=== PATIENT | female | born 1985 | race Caucasian/White ===

== ENCOUNTER 2016-12-17 19:18 | Emergency (ER) | payer SELFPAY ==
[~2016-12-17] VITALS: Ht 167.6 cm; Wt 104.3 kg
[~2016-12-17 19:18] MED LIST: ACET1TAB33 PO; ACET325T9 PO; ASPI1TAB30 PO; CIPR500T94 PO; HYDR-971 PO; IBUP-1227 PO; IBUP200T43 PO; IBUP800T19 PO; METR500T PO; ONDA4TAB10 SL; ONDA4TAB12 PO; SULF1TAB24 PO
[2016-12-17 19:20] VITALS: BP 111/74
[2016-12-17] MEDS ORDERED: METH4TAB2 PO (20:02)
--- NOTE | 2016-12-17 20:02 | PHYS DOC ---
Past History Past Medical History: Kidney Stones, Ovarian Cyst, Stroke, UTI, Other Past Surgical History: Other Smoking: Non-smoker Alcohol Use: None Drug Use: None Adult General Chief Complaint Chief Complaint: UPPER EXTREMITY PAIN HPI HPI Patient is a 31 year old female who presents with complaint of bilateral upper extremity pain. Patient states her symptoms started late last night and have been progressively worsening throughout the day. Patient describes burning, stinging pain from her forearms radiating down to her hands bilaterally. Patient states that all fingers seem to be affected bilaterally. 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 Patient states that she was seen in the emergency department within the last 1-2 days with complaints of lower extremity pain. Patient states that she is found have superficial thrombosis but no evidence of DVT. The patient is concerned because of the pain in her arms whether she may have a potential clot. Patient states that this has also worsened her anxiety at this time. Patient denies any associated swelling to her arms. Patient has not taken any medications to help with her symptoms at this time. She does admit that she has had an increase in work load over the past 2 days and has been doing more lifting with her arms. Review of Systems Review of Systems Constitutional: Anxiety, denies fever or chills [] Eyes: Denies change in visual acuity, redness, or eye pain [] HENT: Denies nasal congestion or sore throat [] Respiratory: Denies cough or shortness of breath [] Cardiovascular: Denies chest pain or edema [] GI: Denies abdominal pain, nausea, vomiting, bloody stools or diarrhea [] : Denies dysuria or hematuria [] Musculoskeletal: Bilateral upper extremity pain [] Integument: Denies rash or skin lesions [] Neurologic: Denies headache, focal weakness or sensory changes [] Allergies Allergies Allergies Coded Allergies Type Severity Reaction Last Updated Verified Penicillins Allergy Intermediate Anaphylaxis 02/18/15 Yes latex Allergy Intermediate rash 02/18/15 Yes tioconazole Allergy Intermediate 02/18/15 Yes Physical Exam Physical Exam Constitutional: Alert, afebrile, appears anxious. [] HENT: Normocephalic, atraumatic, bilateral external ears normal, oropharynx moist, no oral exudates, nose normal. [] Eyes: PERRLA, EOMI, conjunctiva normal, no discharge. [] Neck: Normal range of motion, no tenderness, supple, no stridor. [] Cardiovascular:Heart rate regular rhythm, no murmur [] Lungs & Thorax: Bilateral breath sounds clear to auscultation [] Abdomen: Bowel sounds normal, soft, no tenderness, no masses, no pulsatile masses. [] Skin: Warm, dry, no erythema, no rash. [] Back: No tenderness, no CVA tenderness. [] Extremities: No obvious swelling or deformity to the bilateral upper extremities , tenderness palpation along bilateral condyles of elbow joints, pulses 2+ distally, diffuse tenderness palpation throughout bilateral forearms and all digits of hands, capillary refill less than 2 seconds. [] Neurologic: Alert and oriented X 3, normal motor function, normal sensory function, no focal deficits noted. [] Current Patient Data Vital Signs Vital Signs Date Time Temp Pulse Resp B/P (MAP) Pulse Ox O2 Delivery O2 Flow Rate FiO2 12/17/16 19:20 97.7 79 20 97 Room Air EKG EKG Not performed [] Radiology/Procedures Radiology/Procedures Not performed [] Course & Med Decision Making Course & Med Decision Making Pertinent Labs and Imaging studies reviewed. (See chart for details) The patient's symptoms appear consistent with overuse injury of the upper extremities. I have low suspicion for deep venous thrombosis as the cause for the patient's symptoms due to its bilateral nature and lack of extremity swelling or abnormal perfusion findings. The patient will be started on Medrol Dosepak for treatment of inflammation to help resolve symptoms. Advise follow- up in 2-3 days a primary doctor and return to emergency department for any worsening symptoms. Patient was understanding and in agreement with treatment plan. Dragon Disclaimer Dragon Disclaimer This chart was dictated in whole or in part using Voice Recognition software in a busy, high-work load, and often noisy Emergency Department environment. It may contain unintended and wholly unrecognized errors or omissions. Departure Departure: Impression: Primary Impression: Bilateral arm pain Disposition: 01 HOME, SELF-CARE Condition: STABLE Referrals: LIDYA THORPE (PCP) Patient Instructions: Musculoskeletal Pain Additional Instructions: Follow-up with primary doctor in 2 days for reevaluation. Return to emergency department for any worsening symptoms. Scripts Methylprednisolone (MEDROL) 4 Mg Tab.ds.pk 1 PKG PO UD, #1 PKG Prov: LAMBERTO ARIAS MD 12/17/16 LAMBERTO ARIAS MD Dec 17, 2016 20:02
== END 2016-12-17 20:10 | disposition home or self-care (01) ==
LOC: ER 19:18
DX: M79.602 Pain in left arm (principal); M79.601 Pain in right arm; R22.33 Localized swelling, mass and lump, upper limb, bilateral; F41.9 Anxiety disorder, unspecified; Z86.73 Personal history of transient ischemic attack (TIA), and cerebral infarction without residual deficits; Z87.442 Personal history of urinary calculi; Z87.440 Personal history of urinary (tract) infections; Z88.0 Allergy status to penicillin; Z88.8 Allergy status to other drugs, medicaments and biological substances; Z91.040 Latex allergy status
CPT/HCPCS: 99283

== ENCOUNTER 2017-08-05 12:05 | Emergency (ER) | payer BC ==
[~2017-08-05] VITALS: Ht 167.6 cm; Wt 104.3 kg
[~2017-08-05 12:05] MED LIST changes: -ASPI1TAB30 PO; +ASPI1TAB31 PO; -IBUP200T43 PO; +IBUP200T44 PO; +METH4TAB2 PO
--- NOTE | 2017-08-05 12:28 | PHYS DOC ---
Past History Past Medical History: Asthma, Kidney Stones, Ovarian Cyst, Stroke, UTI, Other Past Surgical History: Other Smoking: Non-smoker Alcohol Use: None Drug Use: None Adult General Chief Complaint Chief Complaint: FLU SYMPTOM HPI HPI 32-year-old female patient states she had cough and congestion for 2 weeks and was doing [facility] one week ago with negative flu test and treated with doxycycline and Medrol Dosepak but her symptom getting worse for the last 3 or 4 days with fever of 102 yesterday and myalgia and nausea and posttussive vomiting. Patient complaining of chest soreness in substernal area after cough. Patient is not able to sleep at night because of cough and complaining of generalized weakness and sinus pain. Review of Systems Review of Systems Constitutional: Reports fever and generalized weakness Eyes: Denies change in visual acuity, redness, or eye pain [] HENT: Reports congestion and sore throat Respiratory: Reports cough and shortness of breath Cardiovascular: No additional information not addressed in HPI [] GI: Denies abdominal pain, bloody stools or diarrhea, reports nausea and vomiting [] : Denies dysuria or hematuria [] Musculoskeletal: Denies back pain or joint pain [] Integument: Denies rash or skin lesions [] Neurologic: Denies headache, focal weakness or sensory changes [] Endocrine: Denies polyuria or polydipsia [] All other systems were reviewed and found to be within normal limits, except as documented in this note. Allergies Allergies Allergies Coded Allergies Type Severity Reaction Last Updated Verified Penicillins Allergy Intermediate Anaphylaxis 02/18/15 Yes latex Allergy Intermediate rash 02/18/15 Yes tioconazole Allergy Intermediate 02/18/15 Yes Physical Exam Physical Exam Constitutional: Well developed, well nourished, mild distress, non-toxic appearance. [] HENT: Normocephalic, atraumatic, bilateral external ears normal, oropharynx moist, pharyngeal erythema no oral exudates, nasal congestion, sinus tenderness Eyes: PERRLA, EOMI, conjunctiva normal, no discharge. [] Neck: Normal range of motion, no tenderness, supple, no stridor. [] Cardiovascular:Heart rate regular rhythm, no murmur [] Lungs & Thorax: Bilateral breath sounds clear to auscultation [] Abdomen: Bowel sounds normal, soft, no tenderness, no masses, no pulsatile masses. [] Skin: Warm, dry, no erythema, no rash. [] Back: No tenderness, no CVA tenderness. [] Extremities: No tenderness, no cyanosis, no clubbing, ROM intact, no edema. [] Neurologic: Alert and oriented X 3, normal motor function, normal sensory function, no focal deficits noted. [] Psychologic: Affect normal, judgement normal, mood normal. [] EKG EKG [] Radiology/Procedures Radiology/Procedures [][address] [address] IMAGING REPORT Signed PATIENT: TAB CLIFTON ACCOUNT: [id number] : 1985 LOCATION: ER AGE: 32 SEX: F EXAM STATUS: PRE ER ORD. PHYSICIAN: ZACH DENNY MD REASON: cough and shortness of breath PROCEDURE: CHEST PA & LATERAL PROCEDURE: CHEST PA LATERAL CLINICAL INDICATION: cough and shortness of breath COMPARISON: Previous study from 08/16/2014 FINDINGS: No pneumothorax identified. Cardiac and mediastinal contours unremarkable. No pulmonary consolidation or acute airspace disease. No acute osseous abnormalities identified. IMPRESSION: No pulmonary consolidation or acute airspace disease. DICTATED AND SIGNED BY: CLAUDIA SOLARES DO DATE: 08/05/17 1232 CC: BARRIE SOSA MD; ZACH DENNY MD ~ Course & Med Decision Making Course & Med Decision Making Pertinent Labs and Imaging studies reviewed. (See chart for details) Evaluation of patient in ER showed 32-year-old female patient with history of recent upper respiratory infection and negative (and treatment for upper respiratory infection with Medrol Dosepak. Patient complaining of increasing of her symptoms and fever since yesterday. Patient had positive influenza B. Plan to give prescription for Tamiflu and Tussionex and instruction to stop Medrol Dosepak. discharge: I've spoken with the patient and/or caregivers. I've explained the patient's condition, diagnosis and treatment plan based on information available to me at this time. I've answered the patient's and/or caregivers questions and addressed any concerns. The patient and/or caregivers have a good understanding the patient's diagnosis, condition and treatment plan as can be expected at this point. Vital signs have been stabilized. The patient's condition is stable for discharge from the emergency department. The patient will pursue further outpatient evaluation with her primary care provider or other designated consulting physician as outlined in the discharge instructions. Patient and/or caregivers are agreeable to this plan of care and follow-up instructions have been explained in detail. The patient and/or caregivers have received these instructions in written format and expressed understanding of these discharge instructions. The patient and her caregivers are aware that if any significant change in condition or worsening of symptoms should prompt him to immediately return to this of the closest emergency department. If an emergent department is not readily available I would encourage him to call 911. Dragon Disclaimer Dragon Disclaimer This electronic medical record was generated, in whole or in part, using a voice recognition dictation system. Departure Departure: Impression: Primary Impression: Influenza B Disposition: HOME, SELF-CARE (At 1330) Condition: IMPROVED Referrals: BARRIE SOSA MD (PCP) Patient Instructions: Influenza A (H1N1) Additional Instructions: Drink plenty of liquids Follow-up with your primary care physician in 3-5 days Return to ER if not getting better Scripts Hydrocodone/Chlorphen P-Stirex (Tussionex Pennkinetic Susp) 115 Ml Anjelica.er.12h 5 ML PO BID, #120 ML Prov: ZACH DENNY MD 08/05/17 Oseltamivir Phosphate (TAMIFLU) 75 Mg Capsule 1 CAP PO BID, #10 CAP Prov: ZACH DENNY MD 08/05/17 ZACH DENNY MD Aug 05, 2017 12:28
[2017-08-05 12:30] VITALS: BP 104/55
[2017-08-05] MEDS ORDERED: IPRATRPIUM/ALBUTEROL 0.5/2.5MG 3 ML NEBU. NEB ONE (12:30)
--- NOTE | 2017-08-05 12:35 | RAD ---
PROCEDURE: CHEST PA LATERAL CLINICAL INDICATION: cough and shortness of breath COMPARISON: Previous study from 08/16/2014 FINDINGS: No pneumothorax identified. Cardiac and mediastinal contours unremarkable. No pulmonary consolidation or acute airspace disease. No acute osseous abnormalities identified. IMPRESSION: No pulmonary consolidation or acute airspace disease.
[2017-08-05 13:12] LABS: INFLUENZA A PATIENT NEGATIVE (NEGATIVE); INFLUENZA B PATIENT POSITIVE (NEGATIVE)
[2017-08-05] MEDS ORDERED: OSEL75CA PO (13:32)
[2017-08-05] MEDS ORDERED: HYDR115S2 PO (13:32)
[2017-08-06] MEDS ORDERED: RIVA10TA PO (14:20)
[2017-08-07] MEDS ORDERED: OSEL75CA PO (10:22)
== END 2017-08-05 13:43 | disposition home or self-care (01) ==
LOC: ER 12:05
DX: J10.1 Influenza due to other identified influenza virus with other respiratory manifestations (principal); J45.909 Unspecified asthma, uncomplicated; Z87.442 Personal history of urinary calculi; Z86.73 Personal history of transient ischemic attack (TIA), and cerebral infarction without residual deficits; Z87.440 Personal history of urinary (tract) infections; Z88.0 Allergy status to penicillin; Z88.8 Allergy status to other drugs, medicaments and biological substances; Z91.040 Latex allergy status
CPT/HCPCS: 71046; 87804; 94640; 99285; J7620

== ENCOUNTER 2017-08-06 11:10 | Inpatient (IN) | payer BC ==
[~2017-08-06] VITALS: Ht 167.6 cm; Wt 103.4 kg
[~2017-08-06 11:10] MED LIST changes: +HYDR115S2 PO; +OSEL75CA PO
[2017-08-06] MEDS ORDERED: IV NORMAL SALINE 1,000ML 1,000 ML IV SCH (11:24)
[2017-08-06] MEDS ORDERED: 0.9 % SODIUM CHLORIDE 10 ML DISP.SYRIN. IV PRN (11:30)
[2017-08-06] MEDS ORDERED: KETOROLAC 30 MG/ML VIAL. IV ONE (12:00)
[2017-08-06] MEDS ORDERED: ONDANSETRON PF 4 MG/2 ML VIAL. IV ONE (12:00)
[2017-08-06 12:18] LABS: BASO % 1 % (0-3); EOS % 0 % (0-3); HEMATOCRIT 40.7 % (36.0-47.0); LYMPH # 1.5 x10^3/uL (1.0-4.8); LYMPH % 33 % (24-48); MEAN CORPUSCULAR HEMOGLOBIN 28 pg (25-35); MEAN CORPUSCULAR HGB CONC 34 g/dL (31-37); MEAN CORPUSCULAR VOLUME 80 fL (79-100); MONO # 0.4 x10^3/uL (0.0-1.1); MONO % 8 % (0-9); NEUT # 2.7 x10^3uL (1.8-7.7); NEUT % 58 % (31-73); PLATELET COUNT 186 x10^3/uL (140-400); RED BLOOD COUNT 5.07 x10^6/uL (3.50-5.40); RED CELL DISTRIBUTION WIDTH 14.3 % (11.5-14.5); WHITE BLOOD COUNT 4.7 x10^3/uL (4.0-11.0)
[2017-08-06 12:33] LABS: ALBUMIN 3.8 g/dL (3.4-5.0); CALCIUM 8.8 mg/dL (8.5-10.1); CREATININE 0.9 mg/dL (0.6-1.0); GFR 72.1; POTASSIUM 3.1 mmol/L (3.5-5.1); TOTAL BILIRUBIN 0.3 mg/dL (0.2-1.0); TOTAL PROTEIN 7.6 g/dL (6.4-8.2)
[2017-08-06] MEDS ORDERED: POTASSIUM CHLORIDE 20 MEQ/15 ML ORAL LIQUID. PO ONE (13:00)
[2017-08-06] MEDS ORDERED: MORPHINE SULFATE 4 MG/ML DISP.SYRIN. IV ONE (13:00)
[2017-08-06] MEDS ORDERED: MORPHINE SULFATE 4 MG/ML DISP.SYRIN. IV PRN (13:15)
[2017-08-06] MEDS ORDERED: ONDANSETRON PF 4 MG/2 ML VIAL. IV PRN (13:15)
--- NOTE | 2017-08-06 13:18 | PHYS DOC ---
Past History Past Medical History: Asthma, CVA, [place], Other Past Surgical History: Tubal ligation Smoking: Non-smoker Alcohol Use: None Drug Use: None Adult General Chief Complaint Chief Complaint: NAUSEA/VOMITING/DIARRHEA HPI HPI 32-year-old female patient was seen in this emergency room yesterday with diagnosis of influenza B and treated with Tamiflu and Tussionex but patient states she had frequent episodes of vomiting since this morning and had more than 10 episodes of vomiting and 3 episodes of diarrhea with crampy abdominal pain. Patient complaining of generalized weakness and not feeling good and unable to keep her medication. Review of Systems Review of Systems Constitutional: Reports fever and chills Eyes: Denies change in visual acuity, redness, or eye pain [] HENT: Reports nasal congestion and sore throat Respiratory: Reports cough and shortness of breath [] Cardiovascular: No additional information not addressed in HPI [] GI: Reports abdominal pain, nausea, vomiting, diarrhea [] : Denies dysuria or hematuria [] Musculoskeletal: Denies back pain or joint pain [] Integument: Denies rash or skin lesions [] Neurologic: Reports headache, denies focal weakness or sensory changes [] Endocrine: Denies polyuria or polydipsia [] All other systems were reviewed and found to be within normal limits, except as documented in this note. Current Medications Current Medications Current Medications Medications (Trade) Dose Ordered Sig/Maximo Start Time Stop Time Status Last Admin Dose Admin Ketorolac Tromethamine (Toradol) 30 mg 1X ONCE 08/06/17 12:00 08/06/17 12:01 DC 08/06/17 11:54 30 MG Morphine Sulfate (Morphine 4mg Syringe) 4 mg 1X ONCE 08/06/17 13:00 08/06/17 13:02 DC 08/06/17 12:59 4 MG Ondansetron HCl (Zofran) 4 mg 1X ONCE 08/06/17 12:00 08/06/17 12:01 DC 08/06/17 11:54 4 MG Potassium Chloride (KCl Oral Soln) 40 meq 1X ONCE 08/06/17 13:00 08/06/17 13:02 DC 08/06/17 13:03 40 MEQ Sodium Chloride (Normal Saline Flush) 10 ml QSHIFT PRN 08/06/17 11:30 Allergies Allergies Allergies Coded Allergies Type Severity Reaction Last Updated Verified Penicillins Allergy Intermediate Anaphylaxis 08/06/17 Yes latex Allergy Intermediate rash 08/06/17 Yes tioconazole Allergy Intermediate 08/06/17 Yes Physical Exam Physical Exam Constitutional: Well developed, well nourished, moderate distress, non-toxic appearance, anxious HENT: Normocephalic, atraumatic, bilateral external ears normal, oropharynx dry , pharyngeal erythema, no oral exudates, nose normal. [] Eyes: PERRLA, EOMI, conjunctiva normal, no discharge. [] Neck: Normal range of motion, no tenderness, supple, no stridor. [] Cardiovascular:Heart rate regular rhythm, no murmur [] Lungs & Thorax: Bilateral breath sounds clear to auscultation [] Abdomen: Bowel sounds normal, soft, no tenderness, no masses, no pulsatile masses. [] Skin: Warm, dry, no erythema, no rash. [] Back: No tenderness, no CVA tenderness. [] Extremities: No tenderness, no cyanosis, no clubbing, ROM intact, no edema. [] Neurologic: Alert and oriented X 3, normal motor function, normal sensory function, no focal deficits noted. [] Psychologic: Anxious, judgement normal, mood normal. [] Current Patient Data Vital Signs Vital Signs Date Time Temp Pulse Resp B/P (MAP) Pulse Ox O2 Delivery O2 Flow Rate FiO2 08/06/17 12:59 19 97 Room Air 08/06/17 11:15 98.1 100 Lab Results Laboratory Tests Test 08/06/17 11:44 White Blood Count 4.7 x10^3/uL (4.0-11.0) Red Blood Count 5.07 x10^6/uL (3.50-5.40) Hemoglobin 14.0 g/dL (12.0-15.5) Hematocrit 40.7 % (36.0-47.0) Mean Corpuscular Volume 80 fL (79-100) Mean Corpuscular Hemoglobin 28 pg (25-35) Mean Corpuscular Hemoglobin Concent 34 g/dL (31-37) Red Cell Distribution Width 14.3 % (11.5-14.5) Platelet Count 186 x10^3/uL (140-400) Neutrophils (%) (Auto) 58 % (31-73) Lymphocytes (%) (Auto) 33 % (24-48) Monocytes (%) (Auto) 8 % (0-9) Eosinophils (%) (Auto) 0 % (0-3) Basophils (%) (Auto) 1 % (0-3) Neutrophils # (Auto) 2.7 x10^3uL (1.8-7.7) Lymphocytes # (Auto) 1.5 x10^3/uL (1.0-4.8) Monocytes # (Auto) 0.4 x10^3/uL (0.0-1.1) Eosinophils # (Auto) 0.0 x10^3/uL (0.0-0.7) Basophils # (Auto) 0.0 x10^3/uL (0.0-0.2) Sodium Level 140 mmol/L (136-145) Potassium Level 3.1 mmol/L (3.5-5.1) L Chloride Level 103 mmol/L (98-107) Carbon Dioxide Level 27 mmol/L (21-32) Anion Gap 10 (6-14) Blood Urea Nitrogen 17 mg/dL (7-20) Creatinine 0.9 mg/dL (0.6-1.0) Estimated GFR (Cockcroft-Gault) 72.1 BUN/Creatinine Ratio 19 (6-20) Glucose Level 93 mg/dL (70-99) Calcium Level 8.8 mg/dL (8.5-10.1) Total Bilirubin 0.3 mg/dL (0.2-1.0) Aspartate Amino Transferase (AST) 15 U/L (15-37) Alanine Aminotransferase (ALT) 23 U/L (14-59) Alkaline Phosphatase 52 U/L (46-116) Total Protein 7.6 g/dL (6.4-8.2) Albumin 3.8 g/dL (3.4-5.0) Albumin/Globulin Ratio 1.0 (1.0-1.7) Lipase 133 U/L (73-393) EKG EKG [] Radiology/Procedures Radiology/Procedures [] Course & Med Decision Making Course & Med Decision Making Pertinent Labs reviewed. (See chart for details) Evaluation of patient in ER showed 32-year-old female patient sent diagnose of influenza and complaining of nausea and vomiting and not feeling good. Patient had potassium of 3.1 but was not able to take potassium. Patient treated with IV fluid and Zofran and felt better. Plan to admit patient to hospitalist for rehydration and pain management. Dr. Beltran informed at 1310 and accepted admission. [] Dragon Disclaimer Dragon Disclaimer This electronic medical record was generated, in whole or in part, using a voice recognition dictation system. Departure Departure: Impression: Primary Impression: Intractable nausea and vomiting Additional Impressions: Hypokalemia Influenza B Disposition: 09 ADMITTED INPATIENT (At 1310) Admitting Physician: Jaswinder Beltran Condition: IMPROVED Referrals: JASWINDER BELTRAN MD (PCP) Problem Qualifiers ZACH DENNY MD Aug 06, 2017 13:18
[2017-08-06 13:45] LABS: BILIRUBIN,URINE NEG (NEG); CLARITY,URINE HAZY; COLOR,URINE YELLOW; GLUCOSE,URINE NEG (NEG)
[2017-08-06 13:46] LABS: BACTERIA,URINE FEW /HPF (0-FEW); NITRITE,URINE NEG (NEG); RBC,URINE OCC /HPF (0-2); SQUAMOUS EPITHELIAL CELL,UR MOD /LPF; UROBILINOGEN,URINE 0.2 mg/dL (0.2 mg/dL); YEAST,URINE PRESENT /HPF
[2017-08-06] MEDS: POTASSIUM CL 40MEQ IN 0.9%NACL 1,000 ML IV SCH ×2 (14:16→23:29)
[2017-08-06] MEDS ORDERED: RIVA10TA PO (14:20)
[2017-08-06 14:44] VITALS: BP 102/62
[2017-08-06] MEDS ORDERED: HYDROcodone/CHLORPHEN POLIS 5 ML SUS.ER.12H PO SCH (15:00)
[2017-08-06] MEDS: OSELTAMIVIR 75 MG CAPSULE PO SCH ×2 (15:00→20:02)
[2017-08-06] MEDS ORDERED: ACETAMINOPHEN 500 MG TABLET PO PRN (17:15)
[2017-08-06 17:24] VITALS: BP 101/71
[2017-08-06] MEDS ORDERED: ZOLPIDEM 5 MG TABLET. PO PRN (17:30)
[2017-08-06 20:00] VITALS: BP 117/73
[2017-08-06] MEDS ORDERED: RIVAROXABAN 10 MG TABLET. PO SCH (21:00)
[2017-08-06 23:00] VITALS: BP 126/76
--- NOTE | 2017-08-06 23:46 | HP ---
ADMIT DATE: 08/06/2017 HISTORY OF PRESENT ILLNESS: The patient came in, apparently was diagnosed with influenza B, sent home, treated with Tamiflu and Tussionex; however, the patient became increasingly nauseated, vomiting 10 times of vomiting, 3 episodes of diarrhea, crampy abdominal pain, generalized weakness, unable to take her medication. As a result of this, the patient was admitted to the hospital for further evaluation and treatment of her dehydration and influenza B. PAST MEDICAL HISTORY: Asthma, stroke, [place], had a history of a stroke, heart attack, blood disorder of factor 2, 5, and 8 deficiency. PAST SURGICAL HISTORY: Tubal ligation. SOCIAL HISTORY: The patient denies smoking, alcohol or drug use. FAMILY HISTORY: Father with history of stroke. ALLERGIES: PENICILLIN, IBUPROFEN, LATEX, TIOCONAZOLE. The patient of course is a full code. MEDICATIONS: Includes Tussionex, Tamiflu 75 b.i.d. and Xarelto 10 mg a day for history of stroke. REVIEW OF SYSTEMS: As stated in the HPI, generalized weakness, nausea, vomiting, diarrhea, and dehydration. The patient will be admitted for further evaluation and for as such. PHYSICAL EXAMINATION: GENERAL: This is a pleasant white female with moderate amount of pain. VITAL SIGNS: Blood pressure 101/70, respiratory rate 16, pulse 80, afebrile. HEENT: The patient's head was atraumatic, normocephalic. Eyes: PERRLA without jaundice. The mouth and throat were normal. NECK: Supple, without thyromegaly. LUNGS: Diminished throughout, but clear. CARDIOVASCULAR: Regular sinus rhythm. ABDOMEN: Soft, nontender, no rebound or guarding. Positive bowel sounds, no hepatosplenomegaly was noted. EXTREMITIES: No clubbing, cyanosis or edema. NEUROLOGIC: The patient was alert and oriented x 3. IMPRESSION AND PLAN: Influenza B. nausea, vomiting, dehydration. Continue with Tamiflu, IV fluids and make further evaluation on her as indicated per those results. BARRIE SOSA MD DR: ANTHONY/claude JOB#: [id number] / [id number]
[2017-08-07] MEDS: POTASSIUM CL 40MEQ IN 0.9%NACL 1,000 ML IV SCH ×2 (05:30→06:24)
[2017-08-07 05:55] VITALS: BP 93/59
[2017-08-07 06:40] LABS: BASO % 0 % (0-3); EOS % 1 % (0-3); HEMATOCRIT 36.4 % (36.0-47.0); HEMOGLOBIN 12.6 g/dL (12.0-15.5); LYMPH # 2.1 x10^3/uL (1.0-4.8); LYMPH % 52 % (24-48); MEAN CORPUSCULAR HEMOGLOBIN 28 pg (25-35); MEAN CORPUSCULAR HGB CONC 35 g/dL (31-37); MEAN CORPUSCULAR VOLUME 80 fL (79-100); MONO # 0.3 x10^3/uL (0.0-1.1); MONO % 7 % (0-9); NEUT # 1.6 x10^3uL (1.8-7.7); NEUT % 40 % (31-73); PLATELET COUNT 159 x10^3/uL (140-400); RED BLOOD COUNT 4.53 x10^6/uL (3.50-5.40); RED CELL DISTRIBUTION WIDTH 14.3 % (11.5-14.5)
[2017-08-07 06:48] LABS: ALBUMIN/GLOBULIN RATIO 0.9 (1.0-1.7); CALCIUM 8.2 mg/dL (8.5-10.1); CREATININE 0.7 mg/dL (0.6-1.0); GFR 96.4; TOTAL BILIRUBIN 0.2 mg/dL (0.2-1.0); TOTAL PROTEIN 6.3 g/dL (6.4-8.2)
[2017-08-07] MEDS: OSELTAMIVIR 75 MG CAPSULE PO SCH (07:42)
[2017-08-07] MEDS ORDERED: RIVAROXABAN 10 MG TABLET. PO SCH (08:00)
[2017-08-07] MEDS ORDERED: OSEL75CA PO (10:22)
[2017-08-07] MEDS ORDERED: HYDROcodone/CHLORPHEN POLIS 5 ML SUS.ER.12H PO PRN (15:00)
== END 2017-08-07 10:50 | disposition home or self-care (01) | DRG 641 ==
LOC: ER 11:10 → ICU 13:15 → OBSVTOIN 08-07 08:20
PROVIDERS: ADMIT Family Medicine; ATTEND Family Medicine
DX: E86.0 Dehydration (principal); E87.6 Hypokalemia; J10.1 Influenza due to other identified influenza virus with other respiratory manifestations; J45.909 Unspecified asthma, uncomplicated; R19.7 Diarrhea, unspecified; I25.2 Old myocardial infarction; Z86.73 Personal history of transient ischemic attack (TIA), and cerebral infarction without residual deficits; Z88.0 Allergy status to penicillin; Z88.8 Allergy status to other drugs, medicaments and biological substances; Z91.040 Latex allergy status; Z98.51 Tubal ligation status; Z82.3 Family history of stroke
CPT/HCPCS: 36415; 80053; 81001; 83690; 85025; 87086; 87641; 96361; 96374; 96375; G0378; G0379; J1885; J2270; J2405; 99285-25; J7030

== ENCOUNTER 2018-01-16 10:05 | Emergency (ER) | payer BC ==
[~2018-01-16] VITALS: Ht 167.6 cm; Wt 99.8 kg
[~2018-01-16 10:05] MED LIST changes: +RIVA10TA PO
[2018-01-16] MEDS ORDERED: CLIN300C8 PO ×2 (10:30→10:35)
[2018-01-16] MEDS ORDERED: ACET-704 PO (10:30)
--- NOTE | 2018-01-16 10:41 | PHYS DOC ---
Past History Past Medical History: Asthma, CVA, [place], Other Past Surgical History: Tubal ligation Smoking: Non-smoker Alcohol Use: None Drug Use: None Adult General Chief Complaint Chief Complaint: DENTAL PROBLEM HPI HPI Patient is a 32-year-old female who presents with complaint of left lower dental pain associated with an impacted wisdom tooth. Patient states that she has started to develop swelling. She has an appointment to see the dentist but states that she is not able to get in for 2 weeks. She indicates the pain is getting worse and is worsened with chewing. She is afraid that she may be developing an abscess. She denies any fever, nausea or vomiting. She rates pain at an 8 out of 10. Review of Systems Review of Systems Constitutional: Denies fever or chills [] HENT: Complains of dental pain[] Respiratory: Denies cough or shortness of breath [] Cardiovascular: Denies chest pain[] All other systems were reviewed and found to be within normal limits, except as documented in this note. Allergies Allergies Allergies Coded Allergies Type Severity Reaction Last Updated Verified ibuprofen Allergy Severe 08/06/17 Yes Penicillins Allergy Intermediate Anaphylaxis 08/06/17 Yes latex Allergy Intermediate rash 08/06/17 Yes tioconazole Allergy Intermediate 08/06/17 Yes Physical Exam Physical Exam Constitutional: Well developed, well nourished, no acute distress, non-toxic appearance. [] HENT: Normocephalic, atraumatic, bilateral external ears normal, oropharynx moist, patient does have impacted wisdom tooth with swelling around the gums. There is mild left-sided facial swelling around the angle of the mandible and maxillary region. [] Eyes: PERRLA, EOMI, conjunctiva normal, no discharge. [] Neck: Normal range of motion, no tenderness, supple, no stridor. [] Cardiovascular:Heart rate regular rhythm, no murmur [] Lungs & Thorax: Bilateral breath sounds clear to auscultation [] EKG EKG [] Radiology/Procedures Radiology/Procedures [] Course & Med Decision Making Course & Med Decision Making Pertinent Labs and Imaging studies reviewed. (See chart for details) [] Dragon Disclaimer Dragon Disclaimer This electronic medical record was generated, in whole or in part, using a voice recognition dictation system. Departure Departure: Impression: Primary Impression: Toothache Additional Impression: Dental impaction Disposition: HOME, SELF-CARE Condition: STABLE Referrals: BARRIE SOSA MD (PCP) Patient Instructions: Impacted Molar, Toothache-Brief Additional Instructions: Take prescribed medications as directed and follow-up with dentist as scheduled. Problem Qualifiers MORENO MATHIAS Jr. DO Jan 16, 2018 10:41
[2018-01-16 11:04] VITALS: BP 123/85
== END 2018-01-16 11:04 | disposition home or self-care (01) ==
LOC: ER 10:05
DX: K01.1 Impacted teeth (principal); J45.909 Unspecified asthma, uncomplicated; I25.2 Old myocardial infarction; Z86.73 Personal history of transient ischemic attack (TIA), and cerebral infarction without residual deficits; Z88.6 Allergy status to analgesic agent; Z88.0 Allergy status to penicillin; Z88.8 Allergy status to other drugs, medicaments and biological substances; Z91.040 Latex allergy status
CPT/HCPCS: 99283

== ENCOUNTER 2018-02-20 11:49 | Emergency (ER) | payer BC ==
[~2018-02-20] VITALS: Ht 167.6 cm; Wt 99.8 kg
[~2018-02-20 11:49] MED LIST changes: +ACET-704 PO; +CLIN300C8 PO
[2018-02-20] MEDS ORDERED: IV NORMAL SALINE 1,000ML 1,000 ML IV ONE (12:15)
[2018-02-20] MEDS ORDERED: DEXAMETHASONE SOD PHOS 4 MG/ML VIAL IV ONE (12:30)
[2018-02-20] MEDS ORDERED: ONDANSETRON PF 4 MG/2 ML VIAL. IV ONE (12:30)
--- NOTE | 2018-02-20 12:42 | RAD ---
RS Compliance Statement: One or more of the following individualized dose reduction techniques were utilized for this examination: 1. Automated exposure control 2. Adjustment of the mA and/or kV according to patient size 3. Use of iterative reconstruction technique CT head without contrast 02/20/2018 12:27 PM INDICATION: Left-sided headache since Sunday COMPARISON: CT head February 26, 2014 TECHNIQUE: Multiple axial CT images of the head were obtained from skull base through the vertex without intravenous contrast. FINDINGS: Head: Ventricles, sulci and basal cisterns are within normal limits. There is no hydrocephalus. Panda-white matter differentiation is normal. There is no acute intracranial hemorrhage. There is no mass, mass effect or midline shift. Posterior fossa is normal in appearance. Visualized portions of the orbits are normal. Paranasal sinuses are well aerated. Mastoid air cells are well aerated. Scalp and calvaria are normal. IMPRESSION: No acute intracranial hemorrhage. Electronically signed by: Nicolette Moreno MD (02/20/2018 12:39 PM) [id number]
[2018-02-20 12:54] LABS: ALBUMIN 3.7 g/dL (3.4-5.0); ALBUMIN/GLOBULIN RATIO 0.9 (1.0-1.7); CALCIUM 9.2 mg/dL (8.5-10.1); CREATININE 0.8 mg/dL (0.6-1.0); GFR 82.6; POTASSIUM 4.1 mmol/L (3.5-5.1); TOTAL BILIRUBIN 0.2 mg/dL (0.2-1.0); TOTAL PROTEIN 7.7 g/dL (6.4-8.2)
[2018-02-20 13:04] LABS: BASO # 0.1 x10^3/uL (0.0-0.2); BASO % 1 % (0-3); EOS # 0.1 x10^3/uL (0.0-0.7); EOS % 1 % (0-3); HEMATOCRIT 35.7 % (36.0-47.0); HEMOGLOBIN 12.2 g/dL (12.0-15.5); LYMPH # 2.8 x10^3/uL (1.0-4.8); LYMPH % 27 % (24-48); MEAN CORPUSCULAR HEMOGLOBIN 28 pg (25-35); MEAN CORPUSCULAR HGB CONC 34 g/dL (31-37); MEAN CORPUSCULAR VOLUME 81 fL (79-100); MONO # 0.5 x10^3/uL (0.0-1.1); MONO % 5 % (0-9); NEUT # 6.9 x10^3uL (1.8-7.7); NEUT % 67 % (31-73); PLATELET COUNT 273 x10^3/uL (140-400); RED BLOOD COUNT 4.42 x10^6/uL (3.50-5.40); RED CELL DISTRIBUTION WIDTH 14.4 % (11.5-14.5); WHITE BLOOD COUNT 10.3 x10^3/uL (4.0-11.0)
--- NOTE | 2018-02-20 13:08 | PHYS DOC ---
Past History Past Medical History: Asthma, CVA, [place], Other Past Surgical History: No Surgical History, Tubal ligation Smoking: Non-smoker Alcohol Use: None Drug Use: None Adult General Chief Complaint Chief Complaint: HEADACHE HPI HPI Patient is a 32 year old female without history of migraine headache who presents with complaining of headache. Patient complaining of sudden onset of left temporal headache that started 4 days ago as a constant and stabbing pain associated with photophobia and nausea. Patient rated her pain 9/10 and denies focal neuro deficit, vomiting, blurred vision, head injury, history of headache , , neck pain or back pain. Review of Systems Review of Systems Constitutional: Denies fever or chills [] Eyes: Denies change in visual acuity, redness, or eye pain [] HENT: Denies nasal congestion or sore throat [] Respiratory: Denies cough or shortness of breath [] Cardiovascular: No additional information not addressed in HPI [] GI: Denies abdominal pain, vomiting, bloody stools or diarrhea, reports nausea : Denies dysuria or hematuria [] Musculoskeletal: Denies back pain or joint pain [] Integument: Denies rash or skin lesions [] Neurologic: Reports headache, denies focal weakness or sensory changes [] Endocrine: Denies polyuria or polydipsia [] All other systems were reviewed and found to be within normal limits, except as documented in this note. Current Medications Current Medications Current Medications Medications (Trade) Dose Ordered Sig/Maximo Start Time Stop Time Status Last Admin Dose Admin Dexamethasone Sodium Phosphate (Decadron) 4 mg 1X ONCE 02/20/18 12:30 02/20/18 12:31 DC 02/20/18 12:39 4 MG Fentanyl Citrate (Fentanyl 2ml Vial) 50 mcg 1X ONCE 02/20/18 12:30 02/20/18 12:31 DC 02/20/18 12:38 50 MCG Ondansetron HCl (Zofran) 4 mg 1X ONCE 02/20/18 12:30 02/20/18 12:31 DC 02/20/18 12:38 4 MG Sodium Chloride 1,000 ml @ 1,000 mls/hr 1X ONCE 02/20/18 12:15 02/20/18 13:14 02/20/18 12:38 1,000 MLS/HR Allergies Allergies Allergies Coded Allergies Type Severity Reaction Last Updated Verified ibuprofen Allergy Severe 08/06/17 Yes Penicillins Allergy Intermediate Anaphylaxis 08/06/17 Yes latex Allergy Intermediate rash 08/06/17 Yes tioconazole Allergy Intermediate 08/06/17 Yes Physical Exam Physical Exam Constitutional: Well developed, well nourished, mild distress, non-toxic appearance. [] HENT: Normocephalic, atraumatic, bilateral external ears normal, oropharynx moist, no oral exudates, nose normal, temperature artery area without tenderness [] Eyes: PERRLA, EOMI, conjunctiva normal, no discharge. [] Neck: Normal range of motion, no tenderness, supple, no stridor. [] Cardiovascular:Heart rate regular rhythm, no murmur [] Lungs & Thorax: Bilateral breath sounds clear to auscultation [] Abdomen: Bowel sounds normal, soft, no tenderness, no masses, no pulsatile masses. [] Skin: Warm, dry, no erythema, no rash. [] Back: No tenderness, no CVA tenderness. [] Extremities: No tenderness, no cyanosis, no clubbing, ROM intact, no edema. [] Neurologic: Alert and oriented X 3, normal motor function, normal sensory function, no focal deficits noted. [] Psychologic: Affect normal, judgement normal, mood normal. [] Current Patient Data Vital Signs Vital Signs Date Time Temp Pulse Resp B/P (MAP) Pulse Ox O2 Delivery O2 Flow Rate FiO2 02/20/18 12:38 18 98 Room Air 02/20/18 12:04 98.3 83 Lab Results Laboratory Tests Test 02/20/18 11:49 02/20/18 12:29 POC Urine HCG, Qualitative hcg negative (Negative) Sodium Level 137 mmol/L (136-145) Potassium Level 4.1 mmol/L (3.5-5.1) Chloride Level 103 mmol/L (98-107) Carbon Dioxide Level 24 mmol/L (21-32) Anion Gap 10 (6-14) Blood Urea Nitrogen 9 mg/dL (7-20) Creatinine 0.8 mg/dL (0.6-1.0) Estimated GFR (Cockcroft-Gault) 82.6 BUN/Creatinine Ratio 11 (6-20) Glucose Level 85 mg/dL (70-99) Calcium Level 9.2 mg/dL (8.5-10.1) Total Bilirubin 0.2 mg/dL (0.2-1.0) Aspartate Amino Transferase (AST) 21 U/L (15-37) Alanine Aminotransferase (ALT) 27 U/L (14-59) Alkaline Phosphatase 52 U/L (46-116) Total Protein 7.7 g/dL (6.4-8.2) Albumin 3.7 g/dL (3.4-5.0) Albumin/Globulin Ratio 0.9 (1.0-1.7) L EKG EKG [] Radiology/Procedures Radiology/Procedures [address] [address] IMAGING REPORT Signed PATIENT: TAB CLIFTON ACCOUNT: [id number] : 1985 LOCATION: ER AGE: 32 SEX: F EXAM STATUS: REG ER ORD. PHYSICIAN: ZACH DENNY MD REASON: left-sided headache PROCEDURE: CT HEAD WO CONTRAST PQRS Compliance Statement: One or more of the following individualized dose reduction techniques were utilized for this examination: 1. Automated exposure control 2. Adjustment of the mA and/or kV according to patient size 3. Use of iterative reconstruction technique CT head without contrast 02/20/2018 12:27 PM INDICATION: Left-sided headache since Sunday COMPARISON: CT head February 26, 2014 TECHNIQUE: Multiple axial CT images of the head were obtained from skull base through the vertex without intravenous contrast. FINDINGS: Head: Ventricles, sulci and basal cisterns are within normal limits. There is no hydrocephalus. Panda-white matter differentiation is normal. There is no acute intracranial hemorrhage. There is no mass, mass effect or midline shift. Posterior fossa is normal in appearance. Visualized portions of the orbits are normal. Paranasal sinuses are well aerated. Mastoid air cells are well aerated. Scalp and calvaria are normal. IMPRESSION: No acute intracranial hemorrhage. Electronically signed by: Ava Lucero MD (02/20/2018 12:39 PM) [id number] DICTATED AND SIGNED BY: AVA LUCERO MD DATE: 02/20/18 0096 CC: BARRIE SOSA MD; ZACH DENNY MD ~ Course & Med Decision Making Course & Med Decision Making Pertinent Labs and Imaging studies reviewed. (See chart for details) Evaluation of patient in ER showed 31-year-old male patient with complaining of left-sided headache for 3 days without injury or history of migraine headache. Patient had unremarkable physical exam, CT head, CBC and CMP and ESR. Patient felt better after treatment in ER. Plan to discharge patient home with diagnosis of headache and instruction to follow with her primary care physician. [] Dragon Disclaimer Dragon Disclaimer This electronic medical record was generated, in whole or in part, using a voice recognition dictation system. Departure Departure: Impression: Primary Impression: Headache Disposition: HOME, SELF-CARE (at 1407) Condition: IMPROVED Referrals: BARRIE SOSA MD (PCP) Patient Instructions: General Headache Without Cause, [id number] Additional Instructions: Drink plenty of liquids Follow-up with your primary care physician in 3-5 days Return to ER if not getting better Scripts Ondansetron (ZOFRAN ODT) 4 Mg Tab.rapdis 1 TAB SL Q8HRS, #15 TAB Prov: ZACH DENNY MD 02/20/18 Butalbital/Aspirin/Caffeine (FIORINAL 50-325-40 MG CAPSULE) 1 Each Capsule 1 EACH PO QID PRN for PAIN, #20 CAP Prov: ZACH DENNY MD 02/20/18 ZACH DENNY MD Feb 20, 2018 13:08
[2018-02-20] MEDS ORDERED: diphenhydrAMINE 50 MG/ML VIAL IVP ONE (13:30)
[2018-02-20 13:36] VITALS: BP 117/58
[2018-02-20 14:09] LABS: SEDIMENTATION RATE 19 (0-25)
[2018-02-20] MEDS ORDERED: BUTA1CAP31 PO (14:09)
[2018-02-20] MEDS ORDERED: ONDA4TAB10 SL (14:09)
== END 2018-02-20 14:17 | disposition home or self-care (01) ==
LOC: ER 11:49
DX: R51 Headache (principal); J45.909 Unspecified asthma, uncomplicated; I25.2 Old myocardial infarction; Z86.73 Personal history of transient ischemic attack (TIA), and cerebral infarction without residual deficits; Z88.6 Allergy status to analgesic agent; Z88.0 Allergy status to penicillin; Z91.040 Latex allergy status; Z88.8 Allergy status to other drugs, medicaments and biological substances
CPT/HCPCS: 36415; 70450; 80053; 81025; 85025; 85610; 85651; 96374; 96375; 99285; J1100; J1200; J2405; J3010; J7030

== ENCOUNTER 2018-05-08 11:04 | Emergency (ER) | payer BC ==
[~2018-05-08] VITALS: Ht 167.6 cm; Wt 102.1 kg
[~2018-05-08 11:04] MED LIST changes: +BUTA1CAP31 PO; +HYDR-3165 PO; -HYDR-971 PO
[2018-05-08] MEDS ORDERED: ONDANSETRON PF 4 MG/2 ML VIAL. IV ONE (11:45)
[2018-05-08] MEDS ORDERED: IV NORMAL SALINE 1,000ML 1,000 ML IV ONE (11:45)
[2018-05-08 11:59] LABS: BASO # 0.1 x10^3/uL (0.0-0.2); BASO % 1 % (0-3); EOS % 0 % (0-3); HEMATOCRIT 37.7 % (36.0-47.0); HEMOGLOBIN 12.8 g/dL (12.0-15.5); LYMPH # 2.1 x10^3/uL (1.0-4.8); LYMPH % 25 % (24-48); MEAN CORPUSCULAR HEMOGLOBIN 26 pg (25-35); MEAN CORPUSCULAR HGB CONC 34 g/dL (31-37); MEAN CORPUSCULAR VOLUME 78 fL (79-100); MONO # 0.3 x10^3/uL (0.0-1.1); MONO % 4 % (0-9); NEUT # 6.1 x10^3uL (1.8-7.7); NEUT % 70 % (31-73); PLATELET COUNT 286 x10^3/uL (140-400); RED BLOOD COUNT 4.84 x10^6/uL (3.50-5.40); RED CELL DISTRIBUTION WIDTH 14.9 % (11.5-14.5); WHITE BLOOD COUNT 8.6 x10^3/uL (4.0-11.0)
[2018-05-08 12:14] LABS: ALBUMIN 3.9 g/dL (3.4-5.0); ALBUMIN/GLOBULIN RATIO 1.1 (1.0-1.7); CREATININE 0.8 mg/dL (0.6-1.0); GFR 82.1; POTASSIUM 3.5 mmol/L (3.5-5.1); TOTAL BILIRUBIN 0.3 mg/dL (0.2-1.0); TOTAL PROTEIN 7.4 g/dL (6.4-8.2)
[2018-05-08] MEDS ORDERED: IOHEXOL 300 MG/ML 75 ML VIAL. IV ONE (12:15)
--- NOTE | 2018-05-08 12:15 | PHYS DOC ---
Past History Past Medical History: Asthma, CVA, [place], Other Past Surgical History: Tubal ligation Smoking: Non-smoker Alcohol Use: None Drug Use: None Adult General Chief Complaint Chief Complaint: NAUSEA/VOMITING/DIARRHEA HPI HPI 33-year-old female presents with a day history of nausea and vomiting. Patient was seen at another health care facility 8 days ago and her symptoms have not improved at all. Patient developed diarrhea which she describes as very soft stool yesterday and today. She has also developed right lower quadrant abdominal pain. She states it was painful bouncing in the car driving over here. She denies fever or chills at home. She has not been able to keep down any liquids or solids most of the time. She can sometimes keep water down. She tried Zofran the first few days but it did not work very well. Review of Systems Review of Systems Constitutional: Denies fever or chills [] Eyes: Denies change in visual acuity, redness, or eye pain [] HENT: Denies nasal congestion or sore throat [] Respiratory: Denies cough or shortness of breath [] Cardiovascular: No additional information not addressed in HPI [] GI: Right lower quadrant abdominal pain, nausea, vomiting, diarrhea[] : Denies dysuria or hematuria [] Musculoskeletal: Denies back pain or joint pain [] Integument: Denies rash or skin lesions [] Neurologic: Denies headache, focal weakness or sensory changes [] Endocrine: Denies polyuria or polydipsia [] All other systems were reviewed and found to be within normal limits, except as documented in this note. Current Medications Current Medications Current Medications Medications (Trade) Dose Ordered Sig/Maximo Start Time Stop Time Status Last Admin Dose Admin Ondansetron HCl (Zofran) 4 mg 1X ONCE 05/08/18 11:45 05/08/18 11:46 DC 05/08/18 11:52 4 MG Sodium Chloride 1,000 ml @ 1,000 mls/hr 1X ONCE 05/08/18 11:45 05/08/18 12:44 05/08/18 11:52 1,000 MLS/HR Allergies Allergies Allergies Coded Allergies Type Severity Reaction Last Updated Verified ibuprofen Allergy Severe 08/06/17 Yes Penicillins Allergy Intermediate Anaphylaxis 08/06/17 Yes latex Allergy Intermediate rash 08/06/17 Yes tioconazole Allergy Intermediate 08/06/17 Yes Physical Exam Physical Exam Constitutional: Well developed, well nourished, no acute distress, non-toxic appearance. [] HENT: Normocephalic, atraumatic, bilateral external ears normal, oropharynx dry , no oral exudates, nose normal. [] Eyes: PERRLA, EOMI, conjunctiva normal, no discharge. [] Neck: Normal range of motion, no tenderness, supple, no stridor. [] Cardiovascular:Heart rate regular rhythm, no murmur [] Lungs & Thorax: Bilateral breath sounds clear to auscultation [] Abdomen: Moderate right lower quadrant abdominal pain with guarding and positive psoas sign.[] Skin: Warm, dry, no erythema, no rash. [] Back: No tenderness, no CVA tenderness. [] Extremities: No tenderness, no cyanosis, no clubbing, ROM intact, no edema. [] Neurologic: Alert and oriented X 3, normal motor function, normal sensory function, no focal deficits noted. [] Psychologic: Affect normal, judgement normal, mood normal. [] Current Patient Data Vital Signs Vital Signs Date Time Temp Pulse Resp B/P (MAP) Pulse Ox O2 Delivery O2 Flow Rate FiO2 05/08/18 11:18 97.9 90 18 97 Room Air Lab Results Laboratory Tests Test 05/08/18 11:45 White Blood Count 8.6 x10^3/uL (4.0-11.0) Red Blood Count 4.84 x10^6/uL (3.50-5.40) Hemoglobin 12.8 g/dL (12.0-15.5) Hematocrit 37.7 % (36.0-47.0) Mean Corpuscular Volume 78 fL (79-100) L Mean Corpuscular Hemoglobin 26 pg (25-35) Mean Corpuscular Hemoglobin Concent 34 g/dL (31-37) Red Cell Distribution Width 14.9 % (11.5-14.5) H Platelet Count 286 x10^3/uL (140-400) Neutrophils (%) (Auto) 70 % (31-73) Lymphocytes (%) (Auto) 25 % (24-48) Monocytes (%) (Auto) 4 % (0-9) Eosinophils (%) (Auto) 0 % (0-3) Basophils (%) (Auto) 1 % (0-3) Neutrophils # (Auto) 6.1 x10^3uL (1.8-7.7) Lymphocytes # (Auto) 2.1 x10^3/uL (1.0-4.8) Monocytes # (Auto) 0.3 x10^3/uL (0.0-1.1) Eosinophils # (Auto) 0.0 x10^3/uL (0.0-0.7) Basophils # (Auto) 0.1 x10^3/uL (0.0-0.2) EKG EKG [] Radiology/Procedures Radiology/Procedures [] Impressions: CT Abdomen and Pelvis With Intravenous Contrast: History: Right lower quadrant pain with nausea. Evaluate for appendicitis. Comparison: CT abdomen pelvis August 16, 2014. Technique: After administration of intravenous contrast, 75 mL Omnipaque-300, CT of the abdomen and pelvis was performed. Exposure: One or more of the following individualized dose reduction techniques were utilized for this examination: 1. Automated exposure control 2. Adjustment of the mA and/or kV according to patient size 3. Use of iterative reconstruction technique Findings: Evaluation of enteric structures may be limited by lack of oral contrast. Liver, pancreas, gallbladder, and bilateral adrenal glands are unremarkable. Spleen appears mildly enlarged measuring 13.5 cm maximum dimension. Bilateral kidneys enhance symmetrically. Left kidney demonstrates 1-2 mm nonobstructive nephrolith. Right kidney demonstrates subcentimeter low-attenuation lesion, favored to be cyst. No bowel obstruction or inflammation is seen. Appendix is without evidence of inflammation. Urinary bladder is unremarkable. Intrauterine device is seen. Uterus and adnexa have otherwise unremarkable appearance. Impression: 1. No acute abnormality identified in the abdomen or pelvis. 2. Mild splenomegaly. 3. Nonobstructive left nephrolith. Electronically signed by: Jeff Joseph MD (05/08/2018 12:42 PM) [facility] DICTATED AND SIGNED BY: JEFF JOSEPH MD DATE: 05/08/18 1236 CC: JOSEF TORREZ DO; BARRIE SOSA MD Course & Med Decision Making Course & Med Decision Making Pertinent Labs and Imaging studies reviewed. (See chart for details) The patient was given 4 mg of Zofran IV and 1 L of normal saline. Her labs are unremarkable. Her urinalysis is unremarkable. Her CT scan is negative for acute findings. The patient is feeling a little bit better at this time. Unsure why she had such an extended bought of vomiting. I will discharge her with both Zofran 8 mg ODT as well as Compazine. She is stable for discharge at this time. [] Dragon Disclaimer Dragon Disclaimer This electronic medical record was generated, in whole or in part, using a voice recognition dictation system. Departure Departure: Referrals: BARRIE SOSA MD (PCP) JOSEF TORREZ DO May 08, 2018 12:15
--- NOTE | 2018-05-08 12:46 | RAD ---
CT Abdomen and Pelvis With Intravenous Contrast: History: Right lower quadrant pain with nausea. Evaluate for appendicitis. Comparison: CT abdomen pelvis August 16, 2014. Technique: After administration of intravenous contrast, 75 mL Omnipaque-300, CT of the abdomen and pelvis was performed. Exposure: One or more of the following individualized dose reduction techniques were utilized for this examination: 1. Automated exposure control 2. Adjustment of the mA and/or kV according to patient size 3. Use of iterative reconstruction technique Findings: Evaluation of enteric structures may be limited by lack of oral contrast. Liver, pancreas, gallbladder, and bilateral adrenal glands are unremarkable. Spleen appears mildly enlarged measuring 13.5 cm maximum dimension. Bilateral kidneys enhance symmetrically. Left kidney demonstrates 1-2 mm nonobstructive nephrolith. Right kidney demonstrates subcentimeter low-attenuation lesion, favored to be cyst. No bowel obstruction or inflammation is seen. Appendix is without evidence of inflammation. Urinary bladder is unremarkable. Intrauterine device is seen. Uterus and adnexa have otherwise unremarkable appearance. Impression: 1. No acute abnormality identified in the abdomen or pelvis. 2. Mild splenomegaly. 3. Nonobstructive left nephrolith. Electronically signed by: Jeff Joseph MD (05/08/2018 12:42 PM) [facility]
[2018-05-08 13:08] LABS: U PREG PATIENT NEGATIVE (NEG)
[2018-05-08 13:13] LABS: BACTERIA,URINE FEW /HPF (0-FEW); BILIRUBIN,URINE NEG (NEG); CLARITY,URINE HAZY; COLOR,URINE AMBER; GLUCOSE,URINE NEG (NEG); NITRITE,URINE NEG (NEG); SQUAMOUS EPITHELIAL CELL,UR MANY /LPF; UROBILINOGEN,URINE 0.2 mg/dL (0.2 mg/dL)
[2018-05-08 13:15] VITALS: BP 126/76
[2018-05-08] MEDS ORDERED: ONDA4TAB12 PO (13:35)
[2018-05-08] MEDS ORDERED: PROC10TA57 PO (13:35)
== END 2018-05-08 13:39 | disposition home or self-care (01) ==
LOC: ER 11:04
DX: N20.0 Calculus of kidney (principal); R16.1 Splenomegaly, not elsewhere classified; J45.909 Unspecified asthma, uncomplicated; I25.2 Old myocardial infarction; Z86.73 Personal history of transient ischemic attack (TIA), and cerebral infarction without residual deficits; Z88.6 Allergy status to analgesic agent; Z88.0 Allergy status to penicillin; Z91.040 Latex allergy status; Z88.8 Allergy status to other drugs, medicaments and biological substances
CPT/HCPCS: 36415; 74177; 80053; 81001; 81025; 83690; 85025; 96361; 96374; 99284; J2405; Q9967; J7030

== ENCOUNTER 2018-08-12 18:03 | Emergency (ER) | payer BC, OTHER ==
[~2018-08-12] VITALS: Ht 167.6 cm; Wt 95.3 kg
[~2018-08-12 18:03] MED LIST changes: +PROC10TA57 PO
[2018-08-12 19:05] VITALS: BP 131/76
[2018-08-12] MEDS: HYDROcodone/APAP 5/325MG 1 TAB TABLET PO ONE (19:42)
--- NOTE | 2018-08-12 20:19 | ED.ADGEN ---
Past History Past Medical History: Asthma, CVA, [place], Other Past Surgical History: Tubal ligation Smoking: Non-smoker Alcohol Use: None Drug Use: None Adult General Chief Complaint Chief Complaint Knee pain and ankle pain HPI HPI 3 years old female presented to the emergency department with right ankle pain and left knee pain after fall is able to ambulate no restriction of movement Review of Systems Review of Systems Constitutional: Denies fever or chills [] Eyes: Denies change in visual acuity, redness, or eye pain [] HENT: Denies nasal congestion or sore throat [] Respiratory: Denies cough or shortness of breath [] Cardiovascular: No additional information not addressed in HPI [] GI: Denies abdominal pain, nausea, vomiting, bloody stools or diarrhea [] : Denies dysuria or hematuria [] Integument: Denies rash or skin lesions [] Neurologic: Denies headache, focal weakness or sensory changes [] Endocrine: Denies polyuria or polydipsia [] All other systems were reviewed and found to be within normal limits, except as documented in this note. Current Medications Current Medications Current Medications Medications (Trade) Dose Ordered Sig/Maximo Start Time Stop Time Status Last Admin Dose Admin Acetaminophen/ Hydrocodone Bitart (Lortab 5/325) 1 tab 1X ONCE 08/12/18 19:15 08/12/18 19:17 DC 08/12/18 19:42 1 TAB Allergies Allergies Allergies Coded Allergies Type Severity Reaction Last Updated Verified ibuprofen Allergy Severe 08/06/17 Yes Penicillins Allergy Intermediate Anaphylaxis 08/06/17 Yes latex Allergy Intermediate rash 08/06/17 Yes tioconazole Allergy Intermediate 08/06/17 Yes Physical Exam Physical Exam Constitutional: Well developed, well nourished, no acute distress, non-toxic appearance. [] HENT: Normocephalic, atraumatic, bilateral external ears normal, oropharynx moist, no oral exudates, nose normal. [] Eyes: PERRLA, EOMI, conjunctiva normal, no discharge. [] Neck: Normal range of motion, no tenderness, supple, no stridor. [] Cardiovascular:Heart rate regular rhythm, no murmur [] Lungs & Thorax: Bilateral breath sounds clear to auscultation [] Abdomen: Bowel sounds normal, soft, no tenderness, no masses, no pulsatile masses. [] Skin: Warm, dry, no erythema, no rash. [] Back: No tenderness, no CVA tenderness. [] Extremities: Tender left knee and right ankle no cyanosis, no clubbing, ROM intact, no edema. [] Neurologic: Alert and oriented X 3, normal motor function, normal sensory function, no focal deficits noted. [] Psychologic: Affect normal, judgement normal, mood normal. [] Current Patient Data Vital Signs Vital Signs Date Time Temp Pulse Resp B/P (MAP) Pulse Ox O2 Delivery O2 Flow Rate FiO2 08/12/18 19:42 16 EKG EKG [] Radiology/Procedures Radiology/Procedures [] Course & Med Decision Making Course & Med Decision Making Pertinent Labs and Imaging studies reviewed. (See chart for details) [] Final Impression Final Impression [] Problems: (1) Contusion Qualifiers: Qualified Codes: S80.02XA - Contusion of left knee, initial encounter Dragon Disclaimer Dragon Disclaimer This electronic medical record was generated, in whole or in part, using a voice recognition dictation system. NU LEIGH MD Aug 12, 2018 20:19
--- NOTE | 2018-08-12 23:06 | RAD ---
KNEE LEFT 3V History: FELL ON ICE, LEFT KNEE PAIN, ABRASION TO LEFT KNEE Comparison: None. Findings: 3 views left knee are submitted. No acute fracture or dislocation is identified. Impression: 1. No acute osseous abnormality is identified by radiographs. Electronically signed by: Alvin Swift MD (08/12/2018 11:03 PM) [facility]
--- NOTE | 2018-08-12 23:07 | RAD ---
ANKLE RIGHT 3V History: FELL ON ICE, RIGHT ANKLE PAIN, SWELLING AND BRUISING Comparison: None. Findings: 3 views right ankle are submitted. No acute fracture or dislocation is identified. Impression: 1. No acute osseous abnormality is identified by radiographs. Electronically signed by: Alvin Swift MD (08/12/2018 11:04 PM) [facility]
== END 2018-08-12 20:27 | disposition home or self-care (01) ==
LOC: ER 18:03
DX: S80.02XA Contusion of left knee, initial encounter (principal); M25.571 Pain in right ankle and joints of right foot; J45.909 Unspecified asthma, uncomplicated; I25.2 Old myocardial infarction; Z86.73 Personal history of transient ischemic attack (TIA), and cerebral infarction without residual deficits; Z88.6 Allergy status to analgesic agent; Z88.0 Allergy status to penicillin; Z91.040 Latex allergy status; Z88.8 Allergy status to other drugs, medicaments and biological substances; W18.39XA Other fall on same level, initial encounter; Y93.89 Activity, other specified; Y92.89 Other specified places as the place of occurrence of the external cause; Y99.8 Other external cause status
CPT/HCPCS: 73562; 73610; 99283

== ENCOUNTER 2018-09-05 19:45 | Emergency (ER) | payer OTHER ==
[~2018-09-05] VITALS: Ht 167.6 cm; Wt 95.3 kg
[2018-09-05] MEDS ORDERED: IV RINGERS SOLUTION,LACTATED 1,000 ML IV SCH (19:55)
--- NOTE | 2018-09-05 19:55 | ED.ADGEN ---
Past History Past Medical History: Asthma, CVA, [place], UTI, Other Past Surgical History: Tubal ligation Smoking: Non-smoker Alcohol Use: Rarely Drug Use: None Adult General Chief Complaint Chief Complaint ".. Just after dinner... I got this severe stabbing pain... in my Rt. flank and lower abd...." HPI HPI Patient is a 33 year old female who presents with severe Rt. flank and upper to mid abd. sharp stabbing pain. Pain comes in waves & radiates to her pelvic area. Patient is nauseated. Percussion on right flank back exacerbates pain. Patient has never had kidney stones however there are family members that have had kidney stones. Patient denies any trauma. Patient denies any history immunosuppression. Patient denies any recent travel. Patient denies any intake bad food. Patient denies any changes in her bowel habits . The patient denies any dysuria. Patient has been for live births and 2 miscarriages. She has had a IUD to prevent further pregnancies. . Patient has had a recent reported myocardial infarction 2 weeks ago he Has of acute stress-(was treated [facility]). Has not had a cardiology follow-up since this event. Past history of urinary tract infections. No history of STDs.. Patient normally follows with Dr. Beltran Review of Systems Review of Systems Constitutional: Denies fever or chills [] Eyes: Denies change in visual acuity, redness, or eye pain [] HENT: Denies nasal congestion or sore throat [] Respiratory: Denies cough or shortness of breath [] Cardiovascular: No additional information not addressed in HPI [] GI: Complaints of severe right flank and upper rt. to mid abdominal pain, nausea ,. Denies vomiting, bloody stools or diarrhea [] : Denies dysuria or hematuria [] Musculoskeletal: Denies back pain or joint pain [] Integument: Denies rash or skin lesions [] Neurologic: Denies headache, focal weakness or sensory changes [] Endocrine: Denies polyuria or polydipsia [] All other systems were reviewed and found to be within normal limits, except as documented in this note. Family History Family History Family members with renal stones Current Medications Current Medications Current Medications Medications (Trade) Dose Ordered Sig/Maximo Start Time Stop Time Status Last Admin Dose Admin Diphenhydramine HCl (Benadryl) 50 mg 1X ONCE 09/06/18 01:00 09/06/18 01:00 DC 09/06/18 00:30 50 MG Lactated Ringer's 1,000 ml @ 1,000 mls/hr Q1H 09/05/18 19:55 09/05/18 20:54 DC 09/05/18 20:06 1,000 MLS/HR Levofloxacin (Levaquin) 500 mg 1X ONCE 09/05/18 22:15 09/05/18 22:16 DC 09/05/18 22:13 500 MG Magnesium Hydroxide (Milk Of Magnesia) 2,400 mg 1X ONCE 09/06/18 00:30 09/06/18 00:30 DC 09/06/18 00:29 2,400 MG Morphine Sulfate (Morphine 10mg Syringe) 10 mg 1X ONCE 09/05/18 21:00 09/05/18 21:01 DC 09/05/18 20:52 10 MG Ondansetron HCl (Zofran) 8 mg 1X ONCE 09/05/18 22:45 09/05/18 22:46 DC 09/05/18 22:36 8 MG Prochlorperazine Edisylate (Compazine) 10 mg 1X ONCE 09/06/18 01:00 09/06/18 01:00 DC 09/06/18 00:30 10 MG Allergies Allergies Allergies Coded Allergies Type Severity Reaction Last Updated Verified ibuprofen Allergy Severe 08/06/17 Yes Penicillins Allergy Intermediate Anaphylaxis 08/06/17 Yes latex Allergy Intermediate rash 08/06/17 Yes tioconazole Allergy Intermediate 08/06/17 Yes Physical Exam Physical Exam Constitutional: in acute distress, non-toxic appearance. [] HENT: Normocephalic, atraumatic, bilateral external ears normal, oropharynx moist, no oral exudates, nose normal. [] Eyes: PERRLA, EOMI, conjunctiva normal, no discharge. [] Neck: Normal range of motion, no tenderness, supple, no stridor. [] Cardiovascular: Tachycardia Heart rate regular rhythm, no murmur [] Lungs & Thorax: Bilateral breath sounds clear to auscultation [] Abdomen: Bowel sounds decreased, soft, right flank and Rt.upper to mid abdomen tenderness, no masses, no pulsatile masses. She declines pelvic and rectal exam at this time. Abdomen is distended. Obese. Umbilicus hernia. Skin: Warm, dry, no erythema, no rash. [] Back: No tenderness, right CVA tenderness. [] Extremities: No tenderness, no cyanosis, no clubbing, ROM intact, no edema. [] No psoas sign. Neurologic: Alert and oriented X 3, normal motor function, normal sensory function, no focal deficits noted. [] Psychologic: Affect anxious, judgement normal, mood normal. [] Current Patient Data Vital Signs Vital Signs Date Time Temp Pulse Resp B/P (MAP) Pulse Ox O2 Delivery O2 Flow Rate FiO2 09/05/18 23:13 73 18 103/68 (80) 94 Room Air 09/05/18 22:13 97.8 Lab Results Laboratory Tests Test 09/05/18 19:51 09/05/18 20:00 09/05/18 20:10 Urine Collection Type Unknown Urine Color Arti Urine Clarity Cloudy Urine pH 5.5 Urine Specific [place] >=1.030 Urine Protein 100 mg/dl (NEG-TRACE) Urine Glucose (UA) Neg mg/dL (NEG) Urine Ketones (Stick) Neg mg/dL (NEG) Urine Blood Large (NEG) Urine Nitrite Neg (NEG) Urine Bilirubin Neg (NEG) Urine Urobilinogen Dipstick 0.2 mg/dL (0.2 mg/dL) Urine Leukocyte Esterase Trace (NEG) Urine RBC 3-5 /HPF (0-2) Urine WBC 1-4 /HPF (0-4) Urine Squamous Epithelial Cells Few /LPF Urine Bacteria Few /HPF (0-FEW) Urine Mucus Slight /LPF Urine Opiates Screen Neg (NEG) Urine Methadone Screen Neg (NEG) Urine Barbiturates Neg (NEG) Urine Phencyclidine Screen Neg (NEG) Urine Amphetamine/Methamphetamine Neg (NEG) Urine Benzodiazepines Screen Neg (NEG) Urine Cocaine Screen Neg (NEG) Urine Cannabinoids Screen Neg (NEG) Urine Ethyl Alcohol Neg (NEG) White Blood Count 11.9 x10^3/uL (4.0-11.0) H Red Blood Count 5.06 x10^6/uL (3.50-5.40) Hemoglobin 13.7 g/dL (12.0-15.5) Hematocrit 39.3 % (36.0-47.0) Mean Corpuscular Volume 78 fL (79-100) L Mean Corpuscular Hemoglobin 27 pg (25-35) Mean Corpuscular Hemoglobin Concent 35 g/dL (31-37) Red Cell Distribution Width 15.1 % (11.5-14.5) H Platelet Count 331 x10^3/uL (140-400) Neutrophils (%) (Auto) 60 % (31-73) Lymphocytes (%) (Auto) 33 % (24-48) Monocytes (%) (Auto) 4 % (0-9) Eosinophils (%) (Auto) 2 % (0-3) Basophils (%) (Auto) 1 % (0-3) Neutrophils # (Auto) 7.1 x10^3uL (1.8-7.7) Lymphocytes # (Auto) 3.9 x10^3/uL (1.0-4.8) Monocytes # (Auto) 0.5 x10^3/uL (0.0-1.1) Eosinophils # (Auto) 0.2 x10^3/uL (0.0-0.7) Basophils # (Auto) 0.1 x10^3/uL (0.0-0.2) Prothrombin Time 10.5 SEC (9.4-11.4) Prothrombin Time INR 1.1 (0.9-1.1) PTT 29 SEC (23-33) D-Dimer (Ida) < 0.19 mg/L (0.00-0.50) Maternal Serum HCG Beta Subunit < 1 mIU/mL (0-6) Sodium Level 141 mmol/L (136-145) Potassium Level 3.6 mmol/L (3.5-5.1) Chloride Level 106 mmol/L (98-107) Carbon Dioxide Level 23 mmol/L (21-32) Anion Gap 12 (6-14) Blood Urea Nitrogen 16 mg/dL (7-20) Creatinine 1.0 mg/dL (0.6-1.0) Estimated GFR (Cockcroft-Gault) 63.5 Glucose Level 119 mg/dL (70-99) H Calcium Level 9.2 mg/dL (8.5-10.1) Magnesium Level 1.8 mg/dL (1.8-2.4) Total Bilirubin 0.2 mg/dL (0.2-1.0) Direct Bilirubin 0.1 mg/dL (0.0-0.2) Aspartate Amino Transferase (AST) 11 U/L (15-37) L Alanine Aminotransferase (ALT) 21 U/L (14-59) Alkaline Phosphatase 57 U/L (46-116) Creatine Kinase 101 U/L (26-192) Troponin I Quantitative < 0.017 ng/mL (0-0.055) OF-Nwo-X-Type Natriuretic Peptide 19 pg/mL (0-124) Total Protein 7.7 g/dL (6.4-8.2) Albumin 4.0 g/dL (3.4-5.0) Lipase 241 U/L (73-393) Thyroid Stimulating Hormone (TSH) 14.974 uIU/mL (0.358-3.740) POC Urine HCG, Qualitative hcg negative (Negative) EKG EKG Dictation of EKG shows sinus rhythm at 89 bpm. No findings acute STEMI with contralateral changes.[] Radiology/Procedures Radiology/Procedures Interpretation of acute abdomen film shows no acute cardiopulmonary findings. Does appear to have some scarring or basilar atelectasis. There is no free air under the diaphragm. There is increased stool throughout the colon. Does have an IUD. CT of abdomen shows gallbladder sludge. No hydronephrosis. But there is intra renal stone.[] Does have increased stool throughout the colon consistent with constipation. Has a umbilicus hernia with fat. See formal report when available. Course & Med Decision Making Course & Med Decision Making Pertinent Labs and Imaging studies reviewed. (See chart for details) She stay on a clear fluid diet only for the next 48 hours. No solids or milk products. Must allow complete bowel rest. Push fruit juices. Take Tylenol and ibuprofen for pain. Take Levaquin 500 mg daily for the next 3 days. Follow up urine cultures. Follow-up Dr. Beltran. Return if any concerns. Since discomfort at time of discharge is described as minimal. [] Final Impression Final Impression 1. Abdomen Pain[] 2. Mild [id number]. 3. Constipation 4. UTI 5. Possible Renal Colic Dragon Disclaimer Dragon Disclaimer This electronic medical record was generated, in whole or in part, using a voice recognition dictation system. Dragon Disclaimer This chart was dictated in whole or in part using Voice Recognition software in a busy, high-work load, and often noisy Emergency Department environment. It may contain unintended and wholly unrecognized errors or omissions. Discharge Summary Visit Information Final Diagnosis Problems Medical Problems: (1) Biliary colic symptom Status: Acute (2) Pain in the abdomen Status: Acute (3) Renal colic on right side Status: Acute Brief Hospital Course Allergies Allergies Coded Allergies Type Severity Reaction Last Updated Verified ibuprofen Allergy Severe 08/06/17 Yes Penicillins Allergy Intermediate Anaphylaxis 08/06/17 Yes latex Allergy Intermediate rash 08/06/17 Yes tioconazole Allergy Intermediate 08/06/17 Yes Vital Signs Vital Signs Date Time Temp Pulse Resp B/P (MAP) Pulse Ox O2 Delivery O2 Flow Rate FiO2 09/05/18 23:13 73 18 103/68 (80) 94 Room Air 09/05/18 22:13 97.8 Lab Results Laboratory Tests Test 09/05/18 19:51 09/05/18 20:00 09/05/18 20:10 Urine Collection Type Unknown Urine Color Arti Urine Clarity Cloudy Urine pH 5.5 Urine Specific [place] >=1.030 Urine Protein 100 mg/dl (NEG-TRACE) Urine Glucose (UA) Neg mg/dL (NEG) Urine Ketones (Stick) Neg mg/dL (NEG) Urine Blood Large (NEG) Urine Nitrite Neg (NEG) Urine Bilirubin Neg (NEG) Urine Urobilinogen Dipstick 0.2 mg/dL (0.2 mg/dL) Urine Leukocyte Esterase Trace (NEG) Urine RBC 3-5 /HPF (0-2) Urine WBC 1-4 /HPF (0-4) Urine Squamous Epithelial Cells Few /LPF Urine Bacteria Few /HPF (0-FEW) Urine Mucus Slight /LPF Urine Opiates Screen Neg (NEG) Urine Methadone Screen Neg (NEG) Urine Barbiturates Neg (NEG) Urine Phencyclidine Screen Neg (NEG) Urine Amphetamine/Methamphetamine Neg (NEG) Urine Benzodiazepines Screen Neg (NEG) Urine Cocaine Screen Neg (NEG) Urine Cannabinoids Screen Neg (NEG) Urine Ethyl Alcohol Neg (NEG) White Blood Count 11.9 x10^3/uL (4.0-11.0) Red Blood Count 5.06 x10^6/uL (3.50-5.40) Hemoglobin 13.7 g/dL (12.0-15.5) Hematocrit 39.3 % (36.0-47.0) Mean Corpuscular Volume 78 fL (79-100) Mean Corpuscular Hemoglobin 27 pg (25-35) Mean Corpuscular Hemoglobin Concent 35 g/dL (31-37) Red Cell Distribution Width 15.1 % (11.5-14.5) Platelet Count 331 x10^3/uL (140-400) Neutrophils (%) (Auto) 60 % (31-73) Lymphocytes (%) (Auto) 33 % (24-48) Monocytes (%) (Auto) 4 % (0-9) Eosinophils (%) (Auto) 2 % (0-3) Basophils (%) (Auto) 1 % (0-3) Neutrophils # (Auto) 7.1 x10^3uL (1.8-7.7) Lymphocytes # (Auto) 3.9 x10^3/uL (1.0-4.8) Monocytes # (Auto) 0.5 x10^3/uL (0.0-1.1) Eosinophils # (Auto) 0.2 x10^3/uL (0.0-0.7) Basophils # (Auto) 0.1 x10^3/uL (0.0-0.2) Prothrombin Time 10.5 SEC (9.4-11.4) Prothromb Time International Ratio 1.1 (0.9-1.1) Activated Partial Thromboplast Time 29 SEC (23-33) D-Dimer (Ida) < 0.19 mg/L (0.00-0.50) Maternal Serum HCG Beta Subunit < 1 mIU/mL (0-6) Sodium Level 141 mmol/L (136-145) Potassium Level 3.6 mmol/L (3.5-5.1) Chloride Level 106 mmol/L (98-107) Carbon Dioxide Level 23 mmol/L (21-32) Anion Gap 12 (6-14) Blood Urea Nitrogen 16 mg/dL (7-20) Creatinine 1.0 mg/dL (0.6-1.0) Estimated GFR (Cockcroft-Gault) 63.5 Glucose Level 119 mg/dL (70-99) Calcium Level 9.2 mg/dL (8.5-10.1) Magnesium Level 1.8 mg/dL (1.8-2.4) Total Bilirubin 0.2 mg/dL (0.2-1.0) Direct Bilirubin 0.1 mg/dL (0.0-0.2) Aspartate Amino Transf (AST/SGOT) 11 U/L (15-37) Alanine Aminotransferase (ALT/SGPT) 21 U/L (14-59) Alkaline Phosphatase 57 U/L (46-116) Creatine Kinase 101 U/L (26-192) Troponin I Quantitative < 0.017 ng/mL (0-0.055) LH-Ejx-T-Type Natriuretic Peptide 19 pg/mL (0-124) Total Protein 7.7 g/dL (6.4-8.2) Albumin 4.0 g/dL (3.4-5.0) Lipase 241 U/L (73-393) Thyroid Stimulating Hormone (TSH) 14.974 uIU/mL (0.358-3.740) Bedside Urine HCG, Qualitative hcg negative (Negative) Brief Hospital Course Ms. Ford is a 33 old female who presented with constipation and possible renal colic. To stay on clear fluid diet. Follow with Dr. Beltran. Return if any concers. Discharge Information Condition at Discharge: Improved, Stable Disposition/Orders: D/C to Home Dischare Medications Current Medications Lactated Ringer's 1,000 ml @ 1,000 mls/hr Q1H IV Last administered on at 20:06; Admin Dose 1,000 MLS/HR; Start 09/05/18 at 19:55; Stop 09/05/18 at 20:54; Status DC Morphine Sulfate (Morphine 10mg Syringe) 10 mg 1X ONCE SQ Last administered on 09/05/18at 20:07; Admin Dose 10 MG; Start 09/05/18 at 20:15; Stop 09/05/18 at 20:16; Status DC Ondansetron HCl (Zofran) 8 mg 1X ONCE IV Last administered on 09/05/18at 20:06 ; Admin Dose 8 MG; Start 09/05/18 at 20:15; Stop 09/05/18 at 20:16; Status DC Morphine Sulfate (Morphine 10mg Syringe) 10 mg 1X ONCE SQ Last administered on 09/05/18at 20:52; Admin Dose 10 MG; Start 09/05/18 at 21:00; Stop 09/05/18 at 21:01; Status DC Levofloxacin (Levaquin) 500 mg 1X ONCE PO Last administered on 09/05/18at 22:13 ; Admin Dose 500 MG; Start 09/05/18 at 22:15; Stop 09/05/18 at 22:16; Status DC Ondansetron HCl (Zofran) 8 mg 1X ONCE IV Last administered on 09/05/18at 22:36 ; Admin Dose 8 MG; Start 09/05/18 at 22:45; Stop 09/05/18 at 22:46; Status DC Magnesium Hydroxide (Milk Of Magnesia) 2,400 mg 1X ONCE PO Last administered on 09/06/18at 00:29; Admin Dose 2,400 MG; Start 09/06/18 at 00:30; Stop 09/06/18 at 00:30; Status DC Prochlorperazine Edisylate (Compazine) 10 mg 1X ONCE IM Last administered on at 00:30; Admin Dose 10 MG; Start 09/06/18 at 01:00; Stop 09/06/18 at 01: 00; Status DC Diphenhydramine HCl (Benadryl) 50 mg 1X ONCE IM Last administered on at 00:30; Admin Dose 50 MG; Start 09/06/18 at 01:00; Stop 09/06/18 at 01:00; Status DC Active Scripts Active Levaquin (Levofloxacin) 500 Mg Tablet 1 Tab PO DAILY Zofran (Ondansetron Hcl) 8 Mg Tablet 8 Mg PO QIDPRN PRN Hydrocodone-Ibuprofen 7.5-200 (Hydrocodone/Ibuprofen) 1 Each Tablet 1 Tab PO PRN Q6HRS PRN Compazine (Prochlorperazine Maleate) 10 Mg Tablet 10 Mg PO Q6HRS PRN Ondansetron Odt (Ondansetron) 4 Mg Tab.rapdis 2 Tab PO PRN Q6-8HRS PRN Zofran Odt (Ondansetron) 4 Mg Tab.rapdis 1 Tab SL Q8HRS Fiorinal 50-325-40 Mg Capsule (Butalbital/Aspirin/Caffeine) 1 Each Capsule 1 Each PO QID PRN Tamiflu (Oseltamivir Phosphate) 75 Mg Capsule 1 Cap PO BID 3 Days Tussionex Pennkinetic Susp (Hydrocodone/Chlorphen P-Stirex) 115 Ml Anjelica.er.12h 5 Ml PO BID Reported Clindamycin Hcl 300 Mg Capsule 1 Cap PO TID Tylenol With Codeine #3 Tablet (Acetaminophen With Codeine) 1 Each Tablet 1 Tab PO Q6HRS PRN Clindamycin Hcl 300 Mg Capsule 1 Cap PO TID Xarelto (Rivaroxaban) 10 Mg Tablet 1 Tab PO DAILY MANDI OLVERA MD Sep 05, 2018 19:55
[2018-09-05] MEDS ORDERED: ONDANSETRON PF 4 MG/2 ML VIAL. IV ONE ×2 (20:15→22:45)
[2018-09-05] MEDS ORDERED: MORPHINE SULFATE 10 MG/ML SYRINGE. SQ ONE ×2 (20:15→21:00)
[2018-09-05 20:18] LABS: BASO # 0.1 x10^3/uL (0.0-0.2); BASO % 1 % (0-3); EOS # 0.2 x10^3/uL (0.0-0.7); EOS % 2 % (0-3); HEMATOCRIT 39.3 % (36.0-47.0); HEMOGLOBIN 13.7 g/dL (12.0-15.5); LYMPH # 3.9 x10^3/uL (1.0-4.8); LYMPH % 33 % (24-48); MEAN CORPUSCULAR HEMOGLOBIN 27 pg (25-35); MEAN CORPUSCULAR HGB CONC 35 g/dL (31-37); MEAN CORPUSCULAR VOLUME 78 fL (79-100); MONO # 0.5 x10^3/uL (0.0-1.1); MONO % 4 % (0-9); NEUT # 7.1 x10^3uL (1.8-7.7); NEUT % 60 % (31-73); PLATELET COUNT 331 x10^3/uL (140-400); RED BLOOD COUNT 5.06 x10^6/uL (3.50-5.40); RED CELL DISTRIBUTION WIDTH 15.1 % (11.5-14.5); WHITE BLOOD COUNT 11.9 x10^3/uL (4.0-11.0)
[2018-09-05 20:26] LABS: BARBITURATES NEG (NEG); BENZODIAZEPINES NEG (NEG); CANNABINOIDS NEG (NEG); COCAINE NEG (NEG); METHADONE NEG (NEG); OPIATES NEG (NEG); PHENCYCLIDINE NEG (NEG)
[2018-09-05 20:29] LABS: BILIRUBIN,URINE NEG (NEG); CLARITY,URINE CLOUDY; COLOR,URINE AMBER; GLUCOSE,URINE NEG (NEG); NITRITE,URINE NEG (NEG); UROBILINOGEN,URINE 0.2 mg/dL (0.2 mg/dL)
[2018-09-05 20:30] LABS: BACTERIA,URINE FEW /HPF (0-FEW); SQUAMOUS EPITHELIAL CELL,UR FEW /LPF
[2018-09-05 20:35] LABS: AMPHETAMINE/METHAMPHETAMINE NEG (NEG)
[2018-09-05] MEDS ORDERED: levoFLOXacin 500 MG TABLET PO ONE (22:15)
[2018-09-05 22:16] LABS: CALCIUM 9.2 mg/dL (8.5-10.1); DIRECT BILIRUBIN 0.1 mg/dL (0.0-0.2); GFR 63.5; MAGNESIUM 1.8 mg/dL (1.8-2.4); POTASSIUM 3.6 mmol/L (3.5-5.1); TOTAL BILIRUBIN 0.2 mg/dL (0.2-1.0); TOTAL PROTEIN 7.7 g/dL (6.4-8.2)
--- NOTE | 2018-09-05 23:09 | RAD ---
EXAM: CT Abdomen and Pelvis without IV contrast CLINICAL HISTORY: Severe right flank pain with nausea tonight. COMPARISON: none TECHNIQUE: Helical CT of the abdomen and pelvis without intravenous contrast. Axial, coronal and sagittal reformatted images were generated. PQRS compliance statement - One or more of the following individualized dose reduction techniques were utilized for this study: 1. Automated exposure control 2. Adjustment of the mA and/or kV according to patient size 3. Use of iterative reconstruction technique FINDINGS: Lack of intravenous contrast limits evaluation of solid organs, vasculature, and lymph nodes. Lower chest: Subpleural linear reticular opacities likely scarring/atelectasis. Heart is mildly enlarged. Trace pericardial fluid likely physiologic. Abdomen and Pelvis: No focal liver lesion. High density material within the gallbladder likely sludge. No biliary ductal dilatation. Spleen is unremarkable. Adrenal glands are normal. Pancreas is unremarkable. Punctate left interpolar renal calculus, nonobstructing. No hydronephrosis or hydroureter. Bladder is grossly unremarkable. Moderate colonic stool content is seen. The appendix is normal. An IUD is seen within the uterus. No abdominal or pelvic lymphadenopathy. No abdominal pelvic ascites. Small fat-containing periumbilical hernia. Bones: Osseous structures are grossly unremarkable. IMPRESSION: 1. Dependent opacities in the lung bases likely scarring/atelectasis. 2. Punctate nonobstructing left interpolar renal calculus. 3. No right renal, ureteral or bladder calculi. 4. High density material within the gallbladder likely sludge. No CT evidence for cholelithiasis or acute cholecystitis. Electronically signed by: Kaleb Dailey MD (09/05/2018 11:06 PM) [facility]
[2018-09-05 23:13] VITALS: BP 103/68
[2018-09-05] MEDS ORDERED: HYDR-1179 PO (23:59)
[2018-09-05] MEDS ORDERED: LEVO500T59 PO (23:59)
[2018-09-05] MEDS ORDERED: ONDA8TAB9 PO (23:59)
[2018-09-06] MEDS ORDERED: MAGNESIUM HYDROXIDE 2,400 MG/30 ML ORAL.SUSP. PO ONE (00:30)
--- NOTE | 2018-09-06 00:32 | RAD ---
EXAM: PA and Lateral Views of the Chest DATE: 09/05/2018 8:17 PM INDICATION: Right sided chest and abdomen pain COMPARISON: No Prior FINDINGS: The heart is not enlarged. Mediastinal and hilar contours are normal. No focal parenchymal airspace opacity. No pleural effusion or pneumothorax. IMPRESSION: 1. No radiographic evidence for acute cardiopulmonary process. Electronically signed by: Kaleb Dailey MD (09/06/2018 12:29 AM) [facility]
--- NOTE | 2018-09-06 00:33 | RAD ---
EXAM: AP views of the abdomen in upright and supine positions. CLINICAL INDICATION: Right sided chest and abdomen pain COMPARISON: None. FINDINGS and IMPRESSION: No abnormal small or large bowel dilatation. Moderate colonic stool content. No abnormal soft tissue mass effect. No suspicious calcifications are seen. No free intraperitoneal gas. IUD is seen. Electronically signed by: Kaleb Dailey MD (09/06/2018 12:30 AM) [facility]
[2018-09-06] MEDS ORDERED: PROCHLORPERAZINE 10 MG/2 ML VIAL. IM ONE (01:00)
[2018-09-06] MEDS ORDERED: diphenhydrAMINE 50 MG/ML VIAL IM ONE (01:00)
--- NOTE | 2018-09-06 19:10 | EKG ---
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
== END 2018-09-06 00:11 | disposition home or self-care (01) ==
LOC: ER 19:45
DX: N39.0 Urinary tract infection, site not specified (principal); K59.00 Constipation, unspecified; D72.829 Elevated white blood cell count, unspecified; K42.9 Umbilical hernia without obstruction or gangrene; J45.909 Unspecified asthma, uncomplicated; I25.2 Old myocardial infarction; Z86.73 Personal history of transient ischemic attack (TIA), and cerebral infarction without residual deficits; Z87.440 Personal history of urinary (tract) infections; Z98.51 Tubal ligation status; Z88.6 Allergy status to analgesic agent; Z88.0 Allergy status to penicillin; Z91.040 Latex allergy status; Z88.8 Allergy status to other drugs, medicaments and biological substances
CPT/HCPCS: 36415; 71046; 74021; 74176; 80048; 80076; 80307; 81001; 81025; 82550; 83690; 83735; 83880; 84443; 84484; 84702; 85025; 85379; 85610; 85730; 87086; 93005; 96372; 96374; 96376; 99284; J0780; J1200; J2270; J2405; J7120; 96361

== ENCOUNTER 2018-10-16 09:12 | Emergency (ER) | payer OTHER ==
[~2018-10-16 09:12] MED LIST changes: +HYDR-1179 PO; +LEVO500T59 PO; +ONDA8TAB9 PO
[2018-10-16 09:15] VITALS: BP 133/86
[2018-10-16] MEDS ORDERED: POLY10DR RIGHTEYE (09:42)
--- NOTE | 2018-10-16 10:06 | PHYS DOC ---
Past History Past Medical History: Asthma, CVA, [place], UTI, Other Past Surgical History: Tubal ligation Smoking: Non-smoker Alcohol Use: Rarely Drug Use: None Adult General Chief Complaint Chief Complaint: EYE PROBLEMS HPI HPI Patient is a 33-year-old female chief complaint of eye irritation and some discharge some crusting in the morning mild pain she knows she has pink eye. Will be reported blurry vision in that eye no contacts she recently was on a trip to [place] she did put her feet in a parkinson or ocean in [place] as well but really did not submerge her face at all. Allergies Allergies Allergies Coded Allergies Type Severity Reaction Last Updated Verified ibuprofen Allergy Severe 08/06/17 Yes Penicillins Allergy Intermediate Anaphylaxis 08/06/17 Yes latex Allergy Intermediate rash 08/06/17 Yes tioconazole Allergy Intermediate 08/06/17 Yes Physical Exam Physical Exam Constitutional: Well developed, well nourished, no acute distress, non-toxic appearance. [] HENT: Normocephalic, atraumatic, bilateral external ears normal, oropharynx moist, no oral exudates, nose normal. [] Eyes: PERRLA, EOMI, injected conjunctiva on the right small amount of discharge anterior chamber appears quiet Pulmonary: Normal respiratory effort no increased work of breathing no obvious chest wall trauma Neurologic: Alert and oriented X 3, normal motor function, normal sensory function, no focal deficits noted. [] Psychologic: Affect normal, judgement normal, mood normal. [] EKG EKG [] Radiology/Procedures Radiology/Procedures [] Course & Med Decision Making Course & Med Decision Making Pertinent Labs and Imaging studies reviewed. (See chart for details) []Probably conjunctivitis try Polytrim return precautions discussed patient voiced understanding Dragon Disclaimer Dragon Disclaimer This electronic medical record was generated, in whole or in part, using a voice recognition dictation system. Departure Departure: Impression: Primary Impression: Conjunctivitis Disposition: 01 HOME, SELF-CARE Condition: STABLE Patient Instructions: Conjunctivitis (Viral and Bacterial) Scripts Polymyxin B Sulf/Trimethoprim (POLYTRIM EYE DROPS) 10 Ml Drops 1 DROP RIGHTEYE Q6HRS for INFECTION for 5 Days, #10 ML Prov: OLIVIA REED MD 10/16/18 OLIVIA REED MD October 16, 2018 10:06
== END 2018-10-16 10:12 | disposition home or self-care (01) ==
LOC: ER 09:17
DX: H10.9 Unspecified conjunctivitis (principal); J45.909 Unspecified asthma, uncomplicated; I25.2 Old myocardial infarction; Z87.440 Personal history of urinary (tract) infections; Z86.73 Personal history of transient ischemic attack (TIA), and cerebral infarction without residual deficits; Z88.6 Allergy status to analgesic agent; Z88.0 Allergy status to penicillin; Z91.040 Latex allergy status; Z88.8 Allergy status to other drugs, medicaments and biological substances
CPT/HCPCS: 99283

== ENCOUNTER 2018-11-27 13:05 | Emergency (ER) | payer OTHER ==
[~2018-11-27] VITALS: Ht 170.2 cm; Wt 100.0 kg
[~2018-11-27 13:05] MED LIST changes: +POLY10DR RIGHTEYE
[2018-11-27 13:19] VITALS: BP 137/89
[2018-11-27] MEDS ORDERED: CLAR-13 PO (13:29)
--- NOTE | 2018-11-27 13:29 | PHYS DOC ---
Past History Past Medical History: [place], Stroke Past Surgical History: No Surgical History Smoking: Non-smoker Alcohol Use: None Drug Use: None Adult General Chief Complaint Chief Complaint: MULTIPLE COMPLAINTS [facility] HPI Patient is a 33-year-old female who presents with complaint of symptoms of upper respiratory infection for the last several days. Patient states this started off with a scratchy throat and has progressively gotten worse to the point now where she has a productive cough and a lot of pain and pressure over her frontal sinus area. She also complains of body aches and states that it feels like when she had the flu, though she denies having had any fever.[] Review of Systems Review of Systems Constitutional: Denies fever or chills [] HENT: Positive congestion and sore throat [] Respiratory: Positive cough without shortness of breath [] Cardiovascular: No additional information not addressed in HPI [] Integument: Denies rash or skin lesions [] Allergies Allergies Allergies Coded Allergies Type Severity Reaction Last Updated Verified ibuprofen Allergy Severe 08/06/17 Yes Penicillins Allergy Intermediate Anaphylaxis 08/06/17 Yes latex Allergy Intermediate rash 08/06/17 Yes tioconazole Allergy Intermediate 08/06/17 Yes Physical Exam Physical Exam Constitutional: Well developed, well nourished, no acute distress, non-toxic appearance. [] HENT: Normocephalic, atraumatic, frontal sinuses are tender to palpation and percussion. [] Cardiovascular:Heart rate regular rhythm, no murmur [] Lungs & Thorax: Bilateral breath sounds clear to auscultation [] Extremities: No tenderness, no cyanosis, no clubbing, ROM intact. [] EKG EKG [] Radiology/Procedures Radiology/Procedures [] Course & Med Decision Making Course & Med Decision Making Pertinent Labs and Imaging studies reviewed. (See chart for details) [] Dragon Disclaimer Dragon Disclaimer This electronic medical record was generated, in whole or in part, using a voice recognition dictation system. Departure Departure: Impression: Primary Impression: Sinusitis Disposition: 01 HOME, SELF-CARE Condition: STABLE Referrals: BARRIE SOSA MD (PCP) Patient Instructions: Sinusitis Scripts Clarithromycin (CLARITHROMYCIN) 500 Mg Tablet 1 TAB PO BID for infection, #20 TAB Prov: MORENO MATHIAS Jr. DO 11/27/18 Problem Qualifiers Primary Impression: Sinusitis Sinusitis location: frontal Chronicity: acute Recurrence: not specified as recurrent Qualified Codes: J01.10 - Acute frontal sinusitis, unspecified MORENO MATHIAS Jr. DO Nov 27, 2018 13:29
== END 2018-11-27 13:30 | disposition home or self-care (01) ==
LOC: ER 13:05
DX: J01.10 Acute frontal sinusitis, unspecified (principal); I25.2 Old myocardial infarction; Z86.73 Personal history of transient ischemic attack (TIA), and cerebral infarction without residual deficits; Z88.6 Allergy status to analgesic agent; Z88.0 Allergy status to penicillin; Z91.040 Latex allergy status; Z88.8 Allergy status to other drugs, medicaments and biological substances
CPT/HCPCS: 99283

== ENCOUNTER 2019-07-17 12:28 | Emergency (ER) | payer BC, OTHER ==
[~2019-07-17] VITALS: Ht 322.6 cm; Wt 100.0 kg
[~2019-07-17 12:28] MED LIST changes: +CLAR-7 PO; -IBUP-1227 PO; +IBUP-1673 PO
[2019-07-17 12:35] VITALS: BP 125/71
[2019-07-17 13:32] LABS: INFLUENZA A PATIENT NEGATIVE (NEGATIVE); INFLUENZA B PATIENT NEGATIVE (NEGATIVE)
--- NOTE | 2019-07-17 13:41 | PHYS DOC ---
Past History Past Medical History: No Pertinent History Past Surgical History: Tubal ligation Smoking: Non-smoker Alcohol Use: None Drug Use: None Adult General Chief Complaint Chief Complaint: FLU SYMPTOM [facility] HPI 34-year-old female presents with 4 day history of cough, congestion, body aches and general fatigue. She has had intermittent fevers up to 102. Her cough is nonproductive. She denies shortness of breath. Review of Systems Review of Systems Constitutional: Fever, body aches[] Eyes: Denies change in visual acuity, redness, or eye pain [] HENT: Denies nasal congestion or sore throat [] Respiratory: Cough without shortness of breath [] Cardiovascular: No additional information not addressed in HPI [] GI: Denies abdominal pain, nausea, vomiting, bloody stools or diarrhea [] : Denies dysuria or hematuria [] Musculoskeletal: Denies back pain or joint pain [] Integument: Denies rash or skin lesions [] Neurologic: Denies headache, focal weakness or sensory changes [] Endocrine: Denies polyuria or polydipsia [] All other systems were reviewed and found to be within normal limits, except as documented in this note. Allergies Allergies Allergies Coded Allergies Type Severity Reaction Last Updated Verified ibuprofen Allergy Severe 08/06/17 Yes Penicillins Allergy Intermediate Anaphylaxis 08/06/17 Yes latex Allergy Intermediate rash 08/06/17 Yes tioconazole Allergy Intermediate 08/06/17 Yes Physical Exam Physical Exam Constitutional: Well developed, well nourished, no acute distress, non-toxic appearance. [] HENT: Normocephalic, atraumatic, bilateral external ears normal, oropharynx moist, no oral exudates, nose normal. [] Eyes: PERRLA, EOMI, conjunctiva normal, no discharge. [] Neck: Normal range of motion, no tenderness, supple, no stridor. [] Cardiovascular:Heart rate regular rhythm, no murmur [] Lungs & Thorax: Bilateral breath sounds clear to auscultation [] Abdomen: Bowel sounds normal, soft, no tenderness, no masses, no pulsatile masses. [] Skin: Warm, dry, no erythema, no rash. [] Back: No tenderness, no CVA tenderness. [] Extremities: No tenderness, no cyanosis, no clubbing, ROM intact, no edema. [] Neurologic: Alert and oriented X 3, normal motor function, normal sensory function, no focal deficits noted. [] Psychologic: Affect normal, judgement normal, mood normal. [] Current Patient Data Vital Signs Vital Signs Date Time Temp Pulse Resp B/P (MAP) Pulse Ox O2 Delivery O2 Flow Rate FiO2 07/17/19 12:35 98.7 86 16 125/71 (89) 97 Room Air Lab Results Laboratory Tests Test 07/17/19 12:45 Influenza Type A (Rapid) Negative (NEGATIVE) Influenza Type B (Rapid) Negative (NEGATIVE) EKG EKG [] Radiology/Procedures Radiology/Procedures [] Course & Med Decision Making Course & Med Decision Making Pertinent Labs and Imaging studies reviewed. (See chart for details) Patient's influenza is negative, but I believe the patient does have influenza. The symptoms are classic and seems like the most likely diagnosis. She is outside the window for Tamiflu. I have advised supportive care such as rest, fluids, Tylenol and ibuprofen. She is stable for discharge at this time. [] Dragon Disclaimer Dragon Disclaimer This electronic medical record was generated, in whole or in part, using a voice recognition dictation system. Departure Departure: Impression: Primary Impression: Influenza Disposition: HOME, SELF-CARE Condition: STABLE Referrals: BARRIE SOSA MD (PCP) Patient Instructions: Influenza, Adult, Ihcz-at-Iwzn JOSEF TORREZ DO Jul 17, 2019 13:41
== END 2019-07-17 13:55 | disposition home or self-care (01) ==
LOC: ER 12:28
DX: J11.1 Influenza due to unidentified influenza virus with other respiratory manifestations (principal); Z88.0 Allergy status to penicillin; Z91.040 Latex allergy status; Z88.8 Allergy status to other drugs, medicaments and biological substances
CPT/HCPCS: 87804; 99284

== ENCOUNTER 2019-09-26 19:00 | Emergency (ER) | payer BC ==
[~2019-09-26] VITALS: Ht 167.6 cm; Wt 100.0 kg
[2019-09-26] MEDS ORDERED: IV NORMAL SALINE 1,000ML 1,000 ML IV ONE (19:30)
[2019-09-26] MEDS ORDERED: ONDANSETRON PF 4 MG/2 ML VIAL. IVP ONE (19:30)
[2019-09-26] MEDS ORDERED: MORPHINE SULFATE 4 MG/ML DISP.SYRIN. IV ONE (19:30)
--- NOTE | 2019-09-26 19:30 | PHYS DOC ---
Past History Past Medical History: Anxiety, Bipolar, Other Additional Past Medical Histor: BLOOD CLOTS, PTSD Past Surgical History: Tubal ligation Smoking: Non-smoker Alcohol Use: None Drug Use: None General Adult EDM: Chief Complaint: FLANK PAIN HPI: HPI: 34-year-old female presents with sudden onset left flank pain. The patient was just lying in bed around 1 PM when she had sudden severe sharp pain in her left flank area. Patient thought maybe it was a muscle spasm so she took a hot shower. This did not help. She tried [id number]-ywhrrof medication without any relief. The pain is an 8 out of 10. She cannot get comfortable. It is painful when her body shakes or bounces. It feels like the pain is slightly lower on her back than it was a few hours ago. No history of kidney stones. She states that this pain is equal to or worse than labor. She denies fever chills. She denies dysuria or increased urinary frequency. Review of Systems: Review of Systems: Constitutional: Denies fever or chills Eyes: Denies change in visual acuity HENT: Denies nasal congestion or sore throat Respiratory: Denies cough or shortness of breath Cardiovascular: Denies chest pain or edema GI: Denies abdominal pain, nausea, vomiting, bloody stools or diarrhea : Denies dysuria Musculoskeletal: Left flank pain Integument: Denies rash Neurologic: Denies headache, focal weakness or sensory changes Endocrine: Denies polyuria or polydipsia Lymphatic: Denies swollen glands Psychiatric: Denies depression or anxiety Heart Score: Risk Factors: Risk Factors: DM, Current or recent (<one month) smoker, HTN, HLP, family history of CAD, obesity. Risk Scores: Score 0 - 3: 2.5% MACE over next 6 weeks - Discharge Home Score 4 - 6: 20.3% MACE over next 6 weeks - Admit for Clinical Observation Score 7 - 10: 72.7% MACE over next 6 weeks - Early Invasive Strategies Current Medications: Current Meds: Current Medications Medications (Trade) Dose Ordered Sig/Maximo Start Time Stop Time Status Last Admin Dose Admin Morphine Sulfate (Morphine 4mg Syringe) 4 mg 1X ONCE 09/26/19 19:30 09/26/19 19:31 Ondansetron HCl (Zofran) 4 mg 1X ONCE 09/26/19 19:30 09/26/19 19:31 Sodium Chloride 1,000 ml @ 1,000 mls/hr 1X ONCE 09/26/19 19:30 09/26/19 20:29 Allergies: Allergies: Allergies Coded Allergies Type Severity Reaction Last Updated Verified ibuprofen Allergy Severe 08/06/17 Yes Penicillins Allergy Intermediate Anaphylaxis 08/06/17 Yes latex Allergy Intermediate rash 08/06/17 Yes tioconazole Allergy Intermediate 08/06/17 Yes Physical Exam: PE: Constitutional: Well developed, obese, well nourished, mild acute distress, in pain, non-toxic appearance. [] HENT: Normocephalic, atraumatic, bilateral external ears normal, oropharynx moist, no oral exudates, nose normal. [] Eyes: PERRLA, EOMI, conjunctiva normal, no discharge. [] Neck: Normal range of motion, no tenderness, supple, no stridor. [] Cardiovascular:Heart rate regular rhythm, no murmur [] Lungs & Thorax: Bilateral breath sounds clear to auscultation [] Abdomen: Bowel sounds normal, soft, no tenderness, no masses, no pulsatile masses. [] Skin: Warm, dry, no erythema, no rash. [] Back: No tenderness, moderate to severe left-sided CVA tenderness. [] Extremities: No tenderness, no cyanosis, no clubbing, ROM intact, no edema. [] Neurologic: Alert and oriented X 3, normal motor function, normal sensory function, no focal deficits noted. [] Psychologic: Affect normal, judgement normal, mood normal. [] Current Patient Data: Labs: Laboratory Tests Test 09/26/19 19:20 POC Urine HCG, Qualitative hcg negative (Negative) Vital Signs: Vital Signs Date Time Temp Pulse Resp B/P (MAP) Pulse Ox O2 Delivery O2 Flow Rate FiO2 09/26/19 19:20 97.9 88 18 111/84 (93) 97 Room Air EKG: EKG: [] Radiology/Procedures: Radiology/Procedures: [] Impressions: PQRS Compliance Statement: One or more of the following individualized dose reduction techniques were utilized for this examination: 1. Automated exposure control 2. Adjustment of the mA and/or kV according to patient size 3. Use of iterative reconstruction technique CT abdomen/pelvis without contrast 09/26/2019 7:19 PM INDICATION: Left flank pain COMPARISON: CT abdomen/pelvis 09/05/2018 TECHNIQUE: Multiple axial CT images of the abdomen and pelvis were obtained without intravenous contrast. Coronal and sagittal reformats are provided. FINDINGS: Lung bases are clear. Heart size is within normal limits. Trace pericardial fluid is present. Evaluation of the solid abdominal viscera is limited by lack of intravenous contrast. Liver, spleen, bilateral adrenal glands, pancreas and gallbladder are normal in appearance. The abdominal aorta is normal in course and caliber. There are no pathologically enlarged lymph nodes in the abdomen and pelvis. There is no abdominal free fluid. There is no free intraperitoneal air. Small and large bowel are normal in caliber. There is no evidence for bowel obstruction. There are no pericolonic inflammatory changes. A normal, nondilated appendix is visualized without adjacent inflammatory changes. The kidneys are relatively symmetric in appearance. There is no suspicious renal mass within the limitations of a noncontrast examination. There is no hydronephrosis. There are no calculi within the kidneys, ureters or urinary bladder. Follicular changes are identified in the adnexa bilaterally. Uterus is normal in appearance. IUD is present. Small fat-containing left inguinal hernia is identified. No suspicious osseous abnormality is identified. IMPRESSION: No evidence for acute obstructive uropathy. Previously seen left renal interpolar calculus measuring 3 mm is not visualized on the current examination and may have passed in the interim. Electronically signed by: Ava Moreno MD (09/26/2019 7:50 PM) [facility] DICTATED AND SIGNED BY: AVA MORENO MD DATE: 09/26/191949 CC: JOSEF TORREZ DO; BARRIE SOSA MD ~ Course & Med Decision Making: Course & Med Decision Making Pertinent Labs and Imaging studies reviewed. (See chart for details) Patient CT is negative for acute findings. It does not show a kidney stone in the kidneys, ureters, or bladder. The official note does state that there is a left renal calculus that was seen previously that is now absent. The patient may have passed a stone. I have given her a liter of normal saline, 4 mg of Zofran, and 4 mg of morphine. The patient has required an additional 1 mg of Dilaudid for pain control. Not sure what the source of this pain is. Labs are unremarkable. Urinalysis has white cells, but few bacteria. I will treat her for UTI with 5 days of Macrobid. We will give the first dose in the ED. She is stable for discharge at this time. [] Dragon Disclaimer: Dragon Disclaimer: This electronic medical record was generated, in whole or in part, using a voice recognition dictation system. Departure Departure: Impression: Primary Impression: UTI (urinary tract infection) Qualified Codes: N30.01 - Acute cystitis with hematuria Additional Impression: Flank pain Disposition: HOME, SELF-CARE Condition: STABLE Referrals: BARRIE SOSA MD (PCP) Patient Instructions: Flank Pain, Kjes-gc-Bygv, Urinary Tract Infection, Iiwg-tf-Ojpq Scripts Nitrofurantoin Monohyd/M-Cryst (MACROBID 100 MG CAPSULE) 100 Mg Capsule 1 CAP PO BID for UTI for 5 Days, #10 CAP 0 Refills Prov: JOSEF TORREZ DO 09/26/19 JOSEF TORREZ DO Sep 26, 2019 19:30
--- NOTE | 2019-09-26 19:52 | RAD ---
PQRS Compliance Statement: One or more of the following individualized dose reduction techniques were utilized for this examination: 1. Automated exposure control 2. Adjustment of the mA and/or kV according to patient size 3. Use of iterative reconstruction technique CT abdomen/pelvis without contrast 09/26/2019 7:19 PM INDICATION: Left flank pain COMPARISON: CT abdomen/pelvis 09/05/2018 TECHNIQUE: Multiple axial CT images of the abdomen and pelvis were obtained without intravenous contrast. Coronal and sagittal reformats are provided. FINDINGS: Lung bases are clear. Heart size is within normal limits. Trace pericardial fluid is present. Evaluation of the solid abdominal viscera is limited by lack of intravenous contrast. Liver, spleen, bilateral adrenal glands, pancreas and gallbladder are normal in appearance. The abdominal aorta is normal in course and caliber. There are no pathologically enlarged lymph nodes in the abdomen and pelvis. There is no abdominal free fluid. There is no free intraperitoneal air. Small and large bowel are normal in caliber. There is no evidence for bowel obstruction. There are no pericolonic inflammatory changes. A normal, nondilated appendix is visualized without adjacent inflammatory changes. The kidneys are relatively symmetric in appearance. There is no suspicious renal mass within the limitations of a noncontrast examination. There is no hydronephrosis. There are no calculi within the kidneys, ureters or urinary bladder. Follicular changes are identified in the adnexa bilaterally. Uterus is normal in appearance. IUD is present. Small fat-containing left inguinal hernia is identified. No suspicious osseous abnormality is identified. IMPRESSION: No evidence for acute obstructive uropathy. Previously seen left renal interpolar calculus measuring 3 mm is not visualized on the current examination and may have passed in the interim. Electronically signed by: Nicolette Moreno MD (09/26/2019 7:50 PM) [facility]
[2019-09-26 20:00] LABS: BASO # 0.1 x10^3/uL (0.0-0.2); BASO % 1 % (0-3); EOS # 0.5 x10^3/uL (0.0-0.7); EOS % 5 % (0-3); HEMATOCRIT 41.3 % (36.0-47.0); HEMOGLOBIN 14.1 g/dL (12.0-15.5); LYMPH # 3.2 x10^3/uL (1.0-4.8); LYMPH % 31 % (24-48); MEAN CORPUSCULAR HEMOGLOBIN 29 pg (25-35); MEAN CORPUSCULAR HGB CONC 34 g/dL (31-37); MEAN CORPUSCULAR VOLUME 84 fL (79-100); MONO # 0.5 x10^3/uL (0.0-1.1); MONO % 5 % (0-9); NEUT % 58 % (31-73); PLATELET COUNT 292 x10^3/uL (140-400); RED BLOOD COUNT 4.94 x10^6/uL (3.50-5.40); RED CELL DISTRIBUTION WIDTH 13.4 % (11.5-14.5); WHITE BLOOD COUNT 10.4 x10^3/uL (4.0-11.0)
[2019-09-26 20:06] LABS: BILIRUBIN,URINE NEG (NEG); CLARITY,URINE CLOUDY; COLOR,URINE YELLOW; GLUCOSE,URINE NEG (NEG)
[2019-09-26 20:07] LABS: CALCIUM 9.4 mg/dL (8.5-10.1); CREATININE 0.9 mg/dL (0.6-1.0); GFR 71.3; POTASSIUM 3.9 mmol/L (3.5-5.1)
[2019-09-26 20:07] LABS: BACTERIA,URINE FEW /HPF (0-FEW); NITRITE,URINE NEG (NEG); RBC,URINE OCC /HPF (0-2); SQUAMOUS EPITHELIAL CELL,UR MANY /LPF; UROBILINOGEN,URINE 0.2 mg/dL (0.2 mg/dL); WBC,URINE 20-40 /HPF (0-4)
[2019-09-26 20:13] LABS: ALBUMIN 3.7 g/dL (3.4-5.0); TOTAL BILIRUBIN 0.2 mg/dL (0.2-1.0); TOTAL PROTEIN 7.5 g/dL (6.4-8.2)
[2019-09-26] MEDS ORDERED: HYDROmorphone PF 1 MG/ML DISP.SYRIN ONE (20:19)
[2019-09-26] MEDS ORDERED: HYDROmorphone PF 1 MG/ML DISP.SYRIN IV ONE (20:30)
[2019-09-26] MEDS ORDERED: NITR100C62 PO (20:51)
[2019-09-26 21:00] VITALS: BP 117/74
[2019-09-26] MEDS ORDERED: NITROFURANTOIN MONOHYD/M-CRYST 100 MG CAPSULE. PO ONE (21:00)
== END 2019-09-26 21:00 | disposition home or self-care (01) ==
LOC: ER 19:00
DX: N30.01 Acute cystitis with hematuria (principal); R10.9 Unspecified abdominal pain; M62.838 Other muscle spasm; F41.9 Anxiety disorder, unspecified; F31.9 Bipolar disorder, unspecified; F43.12 Post-traumatic stress disorder, chronic; Z98.51 Tubal ligation status; Z88.2 Allergy status to sulfonamides; Z88.0 Allergy status to penicillin; Z91.040 Latex allergy status; Z88.8 Allergy status to other drugs, medicaments and biological substances
CPT/HCPCS: 36415; 74176; 80053; 81001; 81025; 85025; 87086; 96374; 96375; 99284; J1170; J2270; J2405; J7030

== ENCOUNTER 2020-01-10 21:58 | Inpatient (IN) | payer SELFPAY ==
[~2020-01-10] VITALS: Ht 167.6 cm; Wt 123.8 kg
[~2020-01-10 21:58] MED LIST changes: +NITR100C62 PO
--- NOTE | 2020-01-10 22:00 | PHYS DOC ---
Past History Past Medical History: Anxiety, Bipolar, DVT, TIA, Other Additional Past Medical Histor: BLOOD CLOTS, PTSD Past Surgical History: Tubal ligation Smoking: Non-smoker Alcohol Use: None Drug Use: None General Adult HPI: HPI: "..I get blood clotts..and to be on blood thinners for the rest of my life because of had a stroke and had previous pulmonary embolisms and DVT.. My legs are both hurting from the knees down like they got blood clots in them.. I was to be taking Xaltero.. 20 the rest of my life..." " I almost feel like I got the flu or some the way I hurt all over.. but mainly in my legs..." Patient is a 34 year old female who presents with bilateral leg edema and pain. Patient has not been compliant with anticoagulation. No history of travel. No history of ill contacts. No history of trauma. Normally follows Dr. Sosa Does have hx DVT, PE and CVA. Pt reports pain in legs are severe. Subjective complaints of malaise, fever, chills, myalgia, arthralgia. Review of Systems: Review of Systems: Constitutional: Some subjective history of fever and chills Eyes: Denies change in visual acuity HENT: Denies nasal congestion or sore throat Respiratory: Denies cough or shortness of breath Cardiovascular: Denies chest pain or edema GI: Denies abdominal pain, nausea, vomiting, bloody stools or diarrhea : Denies dysuria Musculoskeletal: Complains of generalized myalgia and arthralgia but marked lower leg pain and edema Integument: Denies rash Neurologic: Denies headache, focal weakness or sensory changes Endocrine: Denies polyuria or polydipsia Lymphatic: Denies swollen glands Psychiatric: Denies depression or anxiety Heart Score: HEART Score for Chest Pain: HEART Score for Chest Pain Response (Comments) Value History Slighlty/Non-Suspicious 0 ECG Normal 0 Age < 45 0 Risk Factors 1 or 2 Risk Factors 1 Troponin < Normal Limit 0 Total 1 Risk Factors: Risk Factors: DM, Current or recent (<one month) smoker, HTN, HLP, family history of CAD, obesity. Risk Scores: Score 0 - 3: 2.5% MACE over next 6 weeks - Discharge Home Score 4 - 6: 20.3% MACE over next 6 weeks - Admit for Clinical Observation Score 7 - 10: 72.7% MACE over next 6 weeks - Early Invasive Strategies Family History: Family History: Coagulopathy Current Medications: Current Meds: See nursing for home meds Allergies: Allergies: Allergies Coded Allergies Type Severity Reaction Last Updated Verified ibuprofen Allergy Severe 08/06/17 Yes Penicillins Allergy Intermediate Anaphylaxis 08/06/17 Yes latex Allergy Intermediate rash 08/06/17 Yes tioconazole Allergy Intermediate 08/06/17 Yes Physical Exam: PE: Constitutional: Moderate acute distress, non-toxic appearance. [] HENT: Normocephalic, atraumatic, bilateral external ears normal, oropharynx moist, no oral exudates, nose normal. [] Eyes: PERRLA, EOMI, conjunctiva normal, no discharge. [] Neck: Normal range of motion, no tenderness, supple, no stridor. [] Cardiovascular:Heart rate regular rhythm, no murmur [] Lungs & Thorax: Bilateral breath sounds equal apex with scattered wheezes and crackles in lower lung mcnair. Abdomen: Bowel sounds normal, soft, no tenderness, no masses, no pulsatile masses. Obese. Old surgery scars Skin: Warm, dry, no erythema, no rash. [] Back: No tenderness, no CVA tenderness. [] Extremities: bilateral leg tenderness, no cyanosis, no clubbing, ROM intact, bilateral ankle edema. [] Neurologic: Alert and oriented X 3, normal motor function, normal sensory function, no focal deficits noted. [] Psychologic: Affect anxious judgement normal, mood normal. [] EKG: EKG: My interpretation EKG shows a sinus rhythm at 95 bpm. No findings of acute STEMI with contralateral changes. [] Radiology/Procedures: Radiology/Procedures: [address] [address] IMAGING REPORT Signed PATIENT: TAB CLIFTON ACCOUNT: [id number] : 1985 LOCATION: ER AGE: 34 SEX: F EXAM STATUS: REG ER ORD. PHYSICIAN: MANDI OLVERA MD REASON: dyspnea, factorV, off anticoagulation, OMNI 350, 75ml PROCEDURE: CT ANGIOGRAPHY CHEST INDICATION: Reason: dyspnea, factorV, off anticoagulation, OMNI 350, 75ml / Spl. Instructions: / History: COMPARISON: None. TECHNIQUE: Axial CT images obtained through the chest. Intravenous contrast utilized. Angiogram 3D images processed per protocol. One or more of the following individualized dose reduction techniques were utilized for this examination: 1. Automated exposure control; 2. Adjustment of the mA and/or kV according to patient size; 3. Use of iterative reconstruction technique. FINDINGS: No evidence of pneumothorax. There are some mild scattered groundglass opacities. Motion limits the exam. Partially visualized liver is low density. A portion of this is likely secondary to phase of contrast but fatty infiltration can have this appearance. Ascending thoracic aorta is obscured by motion without aneurysm at other portions of thoracic aorta. IMPRESSION: No embolus in the main, right main or left main pulmonary artery with more peripheral vessels obscured by severe motion. There are some patchy groundglass opacities. Can be secondary to mild edema or small airway inflammation including from infectious causes. Electronically signed by: Huma Contreras MD (01/11/2020 5:26 AM) [id number] DICTATED AND SIGNED BY: HUMA CONTRERAS MD DATE: 01/11/20525 CC: BARRIE SOSA MD; MANDI OLVERA MD ~ [place] [id number] IMAGING REPORT Signed PATIENT: TAB CLIFTON ACCOUNT: [id number] : 1985 LOCATION: ER AGE: 34 SEX: F EXAM STATUS: REG ER ORD. PHYSICIAN: MANDI OLVERA MD REASON: dypspnea, CHEST PAIN, BILAT. LEGS SWELLING, X 2 DAYS PROCEDURE: PORTABLE CHEST 1V INDICATION: Reason: dypspnea, CHEST PAIN, BILAT. LEGS SWELLING, X 2 DAYS / Spl. Instructions: / History: COMPARISON: September 05, 2018 FINDINGS: Single view of chest obtained. Cardiac silhouette is similar to prior. Mild haziness lung bases likely secondary to overlap of soft tissue structures. No definite consolidation the rest lungs. IMPRESSION: * Mild haziness at the lower lungs most likely secondary to overlapping soft tissue structures. No definite consolidation elsewhere in the lungs. Electronically signed by: Huma Contreras MD (01/10/2020 11:21 PM) [id number] DICTATED AND SIGNED BY: HUMA CONTRERAS MD DATE: 01/10/202320 CC: BARRIE SOSA MD; MANDI OLVERA MD ~ [][place] [address] IMAGING REPORT Signed PATIENT: TAB CLIFTON ACCOUNT: [id number] : 1985 LOCATION: ER AGE: 34 SEX: F EXAM STATUS: REG ER ORD. PHYSICIAN: MANDI OLVERA MD REASON: dypspnea, CHEST PAIN, BILAT. LEGS SWELLING, X 2 DAYS PROCEDURE: PORTABLE CHEST 1V INDICATION: Reason: dypspnea, CHEST PAIN, BILAT. LEGS SWELLING, X 2 DAYS / Spl. Instructions: / History: COMPARISON: September 05, 2018 FINDINGS: Single view of chest obtained. Cardiac silhouette is similar to prior. Mild haziness lung bases likely secondary to overlap of soft tissue structures. No definite consolidation the rest lungs. IMPRESSION: * Mild haziness at the lower lungs most likely secondary to overlapping soft tissue structures. No definite consolidation elsewhere in the lungs. Electronically signed by: Huma Contreras MD (01/10/2020 11:21 PM) [id number] DICTATED AND SIGNED BY: HUMA CONTRERAS MD DATE: 01/10/202320 CC: BARRIE SOSA MD; MANDI OLVERA MD ~ Course & Med Decision Making: Course & Med Decision Making Pertinent Labs and Imaging studies reviewed. (See chart for details) Discussed presentation, testing and tx plan with Dr. Sosa- Admit for further eval and tx. 0145. Pt. not assigned room in [facility], because of possible nursing shortage [id number]. Pt. still holding in ED at [address] hrs[address] Blum at shift change, if events arise prior to pt. transfer to [facility]. Impression; 1. Leg Pain and Edema 2. Hx.of Coagulopathic Factor V Lieden, Factor VIII 3. Hx. DVT/CVA/PE 4. Leukocytosis 12.8 5. Elevated CK 374 6. Elevate BUN/Creat 21/1.1 7. Viral syndrome 8. Atypical Viral Pneumonia/ Bronchitis [] Dragon Disclaimer: Dragon Disclaimer: This electronic medical record was generated, in whole or in part, using a voice recognition dictation system. Departure Departure: Disposition: HOME/RESIDENCE PRIOR TO ADM Condition: STABLE Referrals: BARRIE SOSA MD (PCP) Justification of Admission: Justification of Admission: Justification of Admission Dx: Yes Comments: coagulopathic Dragon Disclaimer This chart was dictated in whole or in part using Voice Recognition software in a busy, high-work load, and often noisy Emergency Department environment. It may contain unintended and wholly unrecognized errors or omissions. Dragon Disclaimer This chart was dictated in whole or in part using Voice Recognition software in a busy, high-work load, and often noisy Emergency Department environment. It may contain unintended and wholly unrecognized errors or omissions. Dragon Disclaimer This chart was dictated in whole or in part using Voice Recognition software in a busy, high-work load, and often noisy Emergency Department environment. It may contain unintended and wholly unrecognized errors or omissions. MANDI OLVERA MD Jan 10, 2020 22:00
[2020-01-10] MEDS ORDERED: IV RINGERS SOLUTION,LACTATED 1,000 ML IV SCH (22:30)
--- NOTE | 2020-01-10 22:31 | EKG ---
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
[2020-01-10 22:46] LABS: BASO # 0.1 x10^3/uL (0.0-0.2); BASO % 1 % (0-3); EOS # 0.2 x10^3/uL (0.0-0.7); EOS % 2 % (0-3); HEMATOCRIT 39.2 % (36.0-47.0); HEMOGLOBIN 13.6 g/dL (12.0-15.5); LYMPH # 3.7 x10^3/uL (1.0-4.8); LYMPH % 29 % (24-48); MEAN CORPUSCULAR HEMOGLOBIN 29 pg (25-35); MEAN CORPUSCULAR HGB CONC 35 g/dL (31-37); MEAN CORPUSCULAR VOLUME 85 fL (79-100); MONO # 0.7 x10^3/uL (0.0-1.1); MONO % 6 % (0-9); NEUT % 63 % (31-73); PLATELET COUNT 308 x10^3/uL (140-400); RED BLOOD COUNT 4.64 x10^6/uL (3.50-5.40); WHITE BLOOD COUNT 12.8 x10^3/uL (4.0-11.0)
[2020-01-10 22:52] LABS: CALCIUM 9.1 mg/dL (8.5-10.1); CREATININE 1.1 mg/dL (0.6-1.0); GFR 56.5; POTASSIUM 3.7 mmol/L (3.5-5.1)
[2020-01-10 22:54] LABS: BARBITURATES NEG (NEG); BENZODIAZEPINES NEG (NEG); CANNABINOIDS NEG (NEG); COCAINE NEG (NEG); METHADONE NEG (NEG); OPIATES NEG (NEG); PHENCYCLIDINE NEG (NEG)
[2020-01-10 22:55] LABS: AMPHETAMINE/METHAMPHETAMINE NEG (NEG); BACTERIA,URINE 0 /HPF (0-FEW); BILIRUBIN,URINE NEG (NEG); CLARITY,URINE HAZY; COLOR,URINE YELLOW; GLUCOSE,URINE NEG (NEG); NITRITE,URINE NEG (NEG); RBC,URINE 0 /HPF (0-2); UROBILINOGEN,URINE 0.2 mg/dL (0.2 mg/dL); WBC,URINE 0 /HPF (0-4)
[2020-01-10 22:56] LABS: SQUAMOUS EPITHELIAL CELL,UR MOD /LPF
[2020-01-10] MEDS ORDERED: ENOXAPARIN ** NOTE DOSE ** SYRINGE SQ ONE (23:00)
[2020-01-10 23:05] LABS: ALBUMIN 3.9 g/dL (3.4-5.0); DIRECT BILIRUBIN 0.1 mg/dL (0.0-0.2); MAGNESIUM 1.9 mg/dL (1.8-2.4); TOTAL BILIRUBIN 0.3 mg/dL (0.2-1.0); TOTAL PROTEIN 7.4 g/dL (6.4-8.2)
--- NOTE | 2020-01-10 23:23 | RAD ---
INDICATION: Reason: dypspnea, CHEST PAIN, BILAT. LEGS SWELLING, X 2 DAYS / Spl. Instructions: / History: COMPARISON: September 05, 2018 FINDINGS: Single view of chest obtained. Cardiac silhouette is similar to prior. Mild haziness lung bases likely secondary to overlap of soft tissue structures. No definite consolidation the rest lungs. IMPRESSION: * Mild haziness at the lower lungs most likely secondary to overlapping soft tissue structures. No definite consolidation elsewhere in the lungs. Electronically signed by: Daljit Contreras MD (01/10/2020 11:21 PM) [id number]
[2020-01-10] MEDS ORDERED: MORPHINE SULFATE 10 MG/ML SYRINGE. SQ ONE (23:30)
[2020-01-11] MEDS ORDERED: CONTRAST GIVEN. MC PRN (00:45)
[2020-01-11] MEDS ORDERED: IOHEXOL 350 MG/ML 100 ML VIAL. IV ONE (01:00)
[2020-01-11] MEDS ORDERED: ACETAMINOPHEN 325 MG TABLET PO PRN (02:00)
[2020-01-11] MEDS ORDERED: ONDANSETRON PF 4 MG/2 ML VIAL. IVP PRN (02:00)
[2020-01-11] MEDS ORDERED: ANTI-COAG MONITOR BY PHARMACY. MC PRN (02:15)
[2020-01-11] MEDS ORDERED: KETOROLAC 30 MG/ML VIAL. IVP ONE (02:30)
--- NOTE | 2020-01-11 05:29 | RAD ---
INDICATION: Reason: dyspnea, factorV, off anticoagulation, OMNI 350, 75ml / Spl. Instructions: / History: COMPARISON: None. TECHNIQUE: Axial CT images obtained through the chest. Intravenous contrast utilized. Angiogram 3D images processed per protocol. One or more of the following individualized dose reduction techniques were utilized for this examination: 1. Automated exposure control; 2. Adjustment of the mA and/or kV according to patient size; 3. Use of iterative reconstruction technique. FINDINGS: No evidence of pneumothorax. There are some mild scattered groundglass opacities. Motion limits the exam. Partially visualized liver is low density. A portion of this is likely secondary to phase of contrast but fatty infiltration can have this appearance. Ascending thoracic aorta is obscured by motion without aneurysm at other portions of thoracic aorta. IMPRESSION: No embolus in the main, right main or left main pulmonary artery with more peripheral vessels obscured by severe motion. There are some patchy groundglass opacities. Can be secondary to mild edema or small airway inflammation including from infectious causes. Electronically signed by: Daljit Contreras MD (01/11/2020 5:26 AM) [id number]
[2020-01-11] MEDS: IPRATRPIUM/ALBUTEROL 0.5/2.5MG 3 ML NEBU. NEB SCH ×4 (05:45→20:00)
[2020-01-11] MEDS ORDERED: MORPHINE SULFATE 4 MG/ML DISP.SYRIN. IV ONE (07:15)
--- NOTE | 2020-01-11 08:50 | RAD ---
Ultrasound venous system of the legs 01/11/2020. Reason for exam: Leg swelling and pain. History of DVT. Color Doppler and spectral waveform analysis was performed along with real-time grayscale technique. The deep venous system of both lower extremities shows normal compressibility and normal Doppler flow and augmentation of flow extending from the common femoral segment to the popliteal segment. The visualized calf veins also appear normal. IMPRESSION: No evidence of DVT. Electronically signed by: Jesus Barahona Jr., MD (01/11/2020 8:47 AM) [facility]
[2020-01-11] MEDS ORDERED: ENOXAPARIN ** NOTE DOSE ** SYRINGE SQ SCH (09:00)
[2020-01-11] MEDS ORDERED: HYDROcodone/APAP 5/325MG 1 TAB TABLET ONE (10:55)
[2020-01-11 16:24] VITALS: BP 134/88
[2020-01-11] MEDS ORDERED: RIVAROXABAN 10 MG TABLET. PO SCH (17:00)
[2020-01-11] MEDS: MORPHINE SULFATE 2 MG/ML DISP.SYRIN. IV PRN ×2 (17:36→21:05)
[2020-01-11] MEDS ORDERED: DULO30CA2 PO (18:35)
[2020-01-11] MEDS ORDERED: BUSP15TA PO (18:35)
[2020-01-11] MEDS ORDERED: TRAZ-125 PO (18:35)
[2020-01-11] MEDS ORDERED: GABA-586 PO (18:35)
[2020-01-11] MEDS ORDERED: PRAZ5CAP2 PO (18:35)
[2020-01-11] MEDS ORDERED: OLAN5TAB3 PO (18:35)
[2020-01-11 19:05] VITALS: BP 156/66
[2020-01-11 20:11] VITALS: BP 126/74
[2020-01-11] MEDS: DULoxetine HCL 30 MG CAPSULE.DR PO SCH (20:55)
[2020-01-11] MEDS: CLINDAMYCIN HCL 150 MG CAPSULE PO SCH (20:55)
[2020-01-11] MEDS: busPIRone 15 MG TABLET. PO SCH (20:55)
[2020-01-11] MEDS: GABAPENTIN 300 MG CAPSULE. PO SCH (20:55)
[2020-01-11] MEDS ORDERED: traZODone 100 MG TABLET. PO SCH (21:00)
[2020-01-11] MEDS ORDERED: PRAZOSIN 5 MG CAPSULE. PO SCH (21:00)
[2020-01-11] MEDS ORDERED: OLANZapine 5 MG TABLET PO SCH (21:00)
[2020-01-11 23:09] VITALS: BP 100/67
[2020-01-12] MEDS: ACETAMINOPHEN 500 MG TABLET PO PRN ×2 (02:50→09:22)
[2020-01-12] MEDS: IPRATRPIUM/ALBUTEROL 0.5/2.5MG 3 ML NEBU. NEB SCH (05:06)
[2020-01-12 06:20] LABS: CALCIUM 8.3 mg/dL (8.5-10.1); CREATININE 1.1 mg/dL (0.6-1.0); GFR 56.5; POTASSIUM 4.1 mmol/L (3.5-5.1)
[2020-01-12 06:22] LABS: HEMATOCRIT 37.6 % (36.0-47.0); HEMOGLOBIN 13.1 g/dL (12.0-15.5); MEAN CORPUSCULAR HEMOGLOBIN 30 pg (25-35); MEAN CORPUSCULAR HGB CONC 35 g/dL (31-37); MEAN CORPUSCULAR VOLUME 85 fL (79-100); RED BLOOD COUNT 4.44 x10^6/uL (3.50-5.40); RED CELL DISTRIBUTION WIDTH 14.5 % (11.5-14.5); WHITE BLOOD COUNT 6.1 x10^3/uL (4.0-11.0)
[2020-01-12 06:23] LABS: BASO % 1 % (0-3); EOS # 0.2 x10^3/uL (0.0-0.7); EOS % 4 % (0-3); LYMPH # 2.4 x10^3/uL (1.0-4.8); LYMPH % 40 % (24-48); MONO # 0.3 x10^3/uL (0.0-1.1); MONO % 6 % (0-9); NEUT # 3.1 x10^3uL (1.8-7.7); NEUT % 51 % (31-73); PLATELET COUNT 266 x10^3/uL (140-400)
[2020-01-12 08:16] VITALS: BP 112/73
[2020-01-12] MEDS ORDERED: APIXABAN 5 MG TABLET. PO SCH ×2 (09:00→09:15)
[2020-01-12] MEDS ORDERED: RIVAROXABAN 10 MG TABLET. PO SCH (09:00)
[2020-01-12] MEDS ORDERED: APIX5TAB3 PO (09:09)
[2020-01-12] MEDS: GABAPENTIN 300 MG CAPSULE. PO SCH (09:22)
[2020-01-12] MEDS: busPIRone 15 MG TABLET. PO SCH (09:22)
[2020-01-12] MEDS: DULoxetine HCL 30 MG CAPSULE.DR PO SCH (09:22)
[2020-01-12] MEDS: CLINDAMYCIN HCL 150 MG CAPSULE PO SCH (09:22)
--- NOTE | 2020-01-12 10:12 | HP ---
ADMIT DATE: 01/11/2020 HISTORY OF PRESENT ILLNESS: A 34-year-old female came in through the Emergency Room with increased swelling in her legs and shortness of breath. The patient has a history of DVT and history of factor V and factor VIII deficiencies. The patient has not been on any anticoagulation as she ran out of medications, her Xarelto, unable to afford. In any case, the patient was admitted for observation to get her anticoagulation back into range and make further evaluation. IMPRESSION: History of stroke, heart attack, anticoagulation due to V and VIII deficiencies, deep vein thrombosis, obesity She has had a reproductive disorder, tubal ligation, psychiatric problems, depression, anxiety, previous suicide attempt in 11/2019, substance abuse, marijuana smoking, smoking cessation refused, disorders or blood as noted V and VIII, influenza, skin problems, new tattoo on the right wrist. FAMILY HISTORY: Stroke with the father. ALLERGIES: ADVERSE REACTION TO PENICILLIN, IBUPROFEN, LATEX, TIOCONAZOLE. SOCIAL HISTORY: The patient, of course, smokes, drinks alcohol, uses marijuana and is a full code. REVIEW OF SYSTEMS: The patient notes increased swelling to her legs and very painful legs. Otherwise, unremarkable there. Denies chest pain, shortness of breath, abdominal pain. Denies any headaches, visual change, blurred vision, double vision. Otherwise, basically stable. PHYSICAL EXAMINATION: GENERAL: Pleasant white female. VITAL SIGNS: Blood pressure 112/73, respiratory rate 20, pulse 75, afebrile. HEENT: The patient's head was atraumatic, normocephalic. Eyes: PERRLA without jaundice. Mouth and throat: Normal. LUNGS: Clear. CARDIOVASCULAR: Regular sinus rhythm, S1, S2, without murmur, rub, thrill, or extra heart sound. ABDOMEN: Soft, nontender, no rebounding, no guarding. Positive bowel sounds. EXTREMITIES: Swollen, but no pitting edema, might be lymphedema. Pulses noted distally, dorsal pedis, posterior tibialis. NEUROLOGIC: Alert and oriented x 3. Patient's coags did show 0.56. LABORATORY DATA: White count came down from 12 to 6. Chemistries 137, 4.1, 17 and 1.1. TSH slightly elevated at 5.62. We will go ahead and continue to monitor the patient accordingly and make further evaluation on her as indicated per those results. 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 On multiple antipsychotic meds including Zyprexa 5 mg daily, Minipress 5 mg at bedtime, duloxetine 30 mg a day, buspirone 15 mg a day. Other meds up till now clindamycin 300 mg t.i.d., Tylenol and Xarelto, which will be changed to Eliquis. She will be kept on a low fat, heart healthy diet, decreased activity, and encouraged to stop smoking cigarettes as well as marijuana, increased risk for clots, wear support hose and make further evaluation as an outpatient as she was discharged within 23 hours of being seen in the Emergency Room. BARRIE SOSA MD DR: ANTHONY/claude JOB#: [id number] / [id number]
== END 2020-01-12 09:42 | disposition home or self-care (01) | DRG 555 ==
LOC: ER 21:58 → 1 SOUTH 01-11 02:00
PROVIDERS: ADMIT Family Medicine; ATTEND Family Medicine
DX: M79.606 Pain in leg, unspecified (principal); D66 Hereditary factor VIII deficiency; F41.9 Anxiety disorder, unspecified; F12.90 Cannabis use, unspecified, uncomplicated; E03.9 Hypothyroidism, unspecified; F31.9 Bipolar disorder, unspecified; F43.10 Post-traumatic stress disorder, unspecified; F17.210 Nicotine dependence, cigarettes, uncomplicated; I25.2 Old myocardial infarction; Z79.01 Long term (current) use of anticoagulants; Z79.899 Other long term (current) drug therapy; Z98.51 Tubal ligation status; Z91.14 Patient's other noncompliance with medication regimen; Z91.5 Personal history of self-harm; Z86.711 Personal history of pulmonary embolism; Z86.718 Personal history of other venous thrombosis and embolism; Z86.73 Personal history of transient ischemic attack (TIA), and cerebral infarction without residual deficits; Z88.0 Allergy status to penicillin; Z88.8 Allergy status to other drugs, medicaments and biological substances; Z91.040 Latex allergy status; Z82.3 Family history of stroke; Z83.2 Family history of diseases of the blood and blood-forming organs and certain disorders involving the immune mechanism
CPT/HCPCS: 36415; 71045; 71275; 80048; 80076; 80307; 81001; 81025; 82550; 83690; 83735; 83880; 84443; 84484; 85025; 85379; 85610; 85730; 93005; 93970; 96361; 96372; 96374; 96375; J1650; J1885; J2270; J2405; J7120; Q9967; 99285-25; U0003-CS

== ENCOUNTER 2020-05-11 13:48 | Emergency (ER) | payer SELFPAY ==
[~2020-05-11] VITALS: Ht 167.6 cm; Wt 123.8 kg
[~2020-05-11 13:48] MED LIST changes: +APIX5TAB3 PO; +BUSP15TA PO; +DULO30CA2 PO; +GABA-586 PO; +OLAN5TAB3 PO; +PRAZ5CAP2 PO; +TRAZ-125 PO
[2020-05-11 14:00] VITALS: BP 127/89
--- NOTE | 2020-05-11 14:37 | PHYS DOC ---
Past History Past Medical History: Anxiety, Bipolar, DVT, TIA, Other Additional Past Medical Histor: BLOOD CLOTS, PTSD, FACTOR 5 AND 8 Past Surgical History: Tubal ligation Smoking: Non-smoker Alcohol Use: None Drug Use: None General Adult EDM: Chief Complaint: BACK PAIN OR INJURY HPI: HPI: Patient is a 35-year-old female who presents to the emergency department with complaints of pain in her right buttock that shoots down her right leg and sometimes shoots up her back. States that symptoms began yesterday. She denies any recent change in physical activity. 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 She denies any dysuria, increased urinary frequency, hematuria, difficulty voiding, abdominal pain, nausea, vomiting, fever, numbness, tingling, weakness. She denies any recent fall or trauma. Patient states she has tried taking [id number] anti-inflammatories without any benefit. She states that the pain is worse if the area in her right buttock is touched. She currently rates pain a 10 out of 10 on the pain scale, she denies any alleviating factors. Patient denies any saddle anesthesia or loss of bowel or bladder control. Review of Systems: Review of Systems: Complete ROS is negative unless otherwise noted in HPI. Allergies: Allergies: Allergies Coded Allergies Type Severity Reaction Last Updated Verified ibuprofen Allergy Severe 08/06/17 Yes Penicillins Allergy Intermediate Anaphylaxis 08/06/17 Yes latex Allergy Intermediate rash 08/06/17 Yes tioconazole Allergy Intermediate 08/06/17 Yes Physical Exam: PE: See Above Constitutional: Well developed, well nourished, no acute distress, non-toxic appearance, obese [] HENT: Normocephalic, atraumatic, bilateral external ears normal, nose normal. [] Eyes: PERRLA, EOMI, conjunctiva normal, no discharge. [] Neck: Normal range of motion, no stridor. [] Cardiovascular:Heart rate regular rhythm Lungs & Thorax: Respirations even and unlabored, no retractions, no respiratory distress Skin: Warm, dry, no erythema, no rash. [] Back: No bony tenderness, crepitus, or deformity; increased pain with right straight leg lift. Extremities: Right buttock: Tenderness to palpation of the head of the piriformis muscle, no cyanosis, ROM intact, no edema. [] Neurologic: Alert and oriented X 3, no focal deficits noted. [] Psychologic: Affect normal, judgement normal, mood normal. [] Current Patient Data: Vital Signs: Vital Signs Date Time Temp Pulse Resp B/P (MAP) Pulse Ox O2 Delivery O2 Flow Rate FiO2 05/11/20 14:00 97.6 83 16 127/89 (102) 96 Room Air EKG: EKG: [] Radiology/Procedures: Radiology/Procedures: [] Heart Score: Risk Factors: Risk Factors: DM, Current or recent (<one month) smoker, HTN, HLP, family history of CAD, obesity. Risk Scores: Score 0 - 3: 2.5% MACE over next 6 weeks - Discharge Home Score 4 - 6: 20.3% MACE over next 6 weeks - Admit for Clinical Observation Score 7 - 10: 72.7% MACE over next 6 weeks - Early Invasive Strategies Course & Med Decision Making: Course & Med Decision Making Pertinent Labs and Imaging studies reviewed. (See chart for details) 35-year-old female presents emergency room with complaints of 2 days of pain in her right buttock that shoots to her low back and down her right lower leg. Physical exam is consistent with piriformis. A medical screening exam was performed and the patient was advised that there is no acute emergent medical condition. The patient chose to discontinue the visit after speaking with registration. [] Dragon Disclaimer: Dragon Disclaimer: This electronic medical record was generated, in whole or in part, using a voice recognition dictation system. Departure Departure: Impression: Primary Impression: Encounter for medical screening examination Disposition: 01 DC HOME SELF CARE/HOMELESS Condition: STABLE Referrals: BARRIE SOSA MD (PCP) IGNACIO BRANHAM APRN May 11, 2020 14:37
== END 2020-05-11 14:30 | disposition left against medical advice (07) ==
LOC: ER 13:48
DX: Z00.00 Encounter for general adult medical examination without abnormal findings (principal); M54.5 Low back pain; F41.9 Anxiety disorder, unspecified; F31.9 Bipolar disorder, unspecified; Z86.718 Personal history of other venous thrombosis and embolism; Z86.73 Personal history of transient ischemic attack (TIA), and cerebral infarction without residual deficits; Z98.51 Tubal ligation status; Z88.6 Allergy status to analgesic agent; Z88.0 Allergy status to penicillin; Z91.040 Latex allergy status; Z88.8 Allergy status to other drugs, medicaments and biological substances
CPT/HCPCS: 99281

== ENCOUNTER → 2020-09-16 | Outpatient (CLI) | payer OTHER ==
[~2020-09-16] MED LIST changes: -CLIN300C8 PO; +CLIN300C9 PO
--- NOTE | 2020-09-16 19:01 | RAD ---
Study: XR LUMBAR SPINE 2-3V Indication: Chronic low back pain. Comparison: 09/26/2014 Findings: The last well-formed disc space is designated L5-S1 making the T12 vertebral body nonrib-bearing. Minimal lumbar dextrocurvature with the apex at L3-L4. No significant listhesis or disc space narrowi ng. The facet articulations are within normal limits. Intrauterine contraceptive device. Impression: 1. No acute radiographic abnormality of the lumbar spine. 2. No advanced lumbar spondylosis with maintained disc space height. Minimal dextrocurvature with the apex at L3-L4. Electronically signed by: EDA RILEY MD (09/16/2020 6:59 PM) [facility]
== END ==
LOC: DXRAD 11:05
PROVIDERS: ATTEND Anesthesiology Pain Medicine
DX: M41.9 Scoliosis, unspecified (principal)
CPT/HCPCS: 72100

== ENCOUNTER 2021-01-14 11:04 | Emergency (ER) | payer BC, OTHER ==
[~2021-01-14] VITALS: Ht 167.6 cm; Wt 123.8 kg
[2021-01-14 11:12] VITALS: BP 122/96
[2021-01-14] MEDS ORDERED: CLIN150C16 PO (11:22)
[2021-01-14] MEDS ORDERED: HYDR-2759 PO (11:22)
--- NOTE | 2021-01-14 11:27 | PHYS DOC ---
Past History Past Medical History: Anxiety, Bipolar, DVT, TIA, Other Additional Past Medical Histor: BLOOD CLOTS, PTSD, FACTOR 5 AND 8 Past Surgical History: Tubal ligation Smoking: Non-smoker Alcohol Use: None Drug Use: None General Adult EDM: Chief Complaint: DENTAL PROBLEM HPI: HPI: Patient is a 35-year-old female being seen in the ER for dental pain and swelling to her left lower mouth. Patient reports that she tried to get an appointment with her dentist but was unable to get in in a timely manner. Patient reports that she has a history of dental infections and usually requires an antibiotic. Patient denies shortness of breath, difficulty swallowing, fevers. Patient is nonlabored, she is maintaining secretions, vital signs stable. Review of Systems: Review of Systems: 14 body systems of the review of systems have been reviewed. See HPI for pertinent positive and negative responses, otherwise all other systems are negative, nonpertinent or noncontributory Allergies: Allergies: Allergies Coded Allergies Type Severity Reaction Last Updated Verified ibuprofen Allergy Severe 08/06/17 Yes Penicillins Allergy Intermediate Anaphylaxis 08/06/17 Yes latex Allergy Intermediate rash 08/06/17 Yes tioconazole Allergy Intermediate 08/06/17 Yes Physical Exam: PE: General: Appears well, nontoxic, and comfortable skin: Warm, dry. Head: Atraumatic EENT: PERRL, moist mucous membranes, uvula midline, no trismus, maintaining secretions, no phonation changes, mild swelling noted along the left lower oral mucosa, multiple areas of dental caries Neck: Trachea midline, normal range of motion, no stridor respiratory: Normal work of breathing, no tachypnea cardiovascular: Normal peripheral perfusion musculoskeletal: Normal range of motion neuro alert and oriented x4, no focal deficits lymph: No cervical lymphadenopathy psych: Normal affect and mood Current Patient Data: Vital Signs: Vital Signs Date Time Temp Pulse Resp B/P (MAP) Pulse Ox O2 Delivery O2 Flow Rate FiO2 01/14/21 11:12 98.0 99 16 122/96 96 Room Air EKG: EKG: [] Radiology/Procedures: Radiology/Procedures: [] Heart Score: C/O Chest Pain: No Risk Factors: Risk Factors: DM, Current or recent (<one month) smoker, HTN, HLP, family history of CAD, obesity. Risk Scores: Score 0 - 3: 2.5% MACE over next 6 weeks - Discharge Home Score 4 - 6: 20.3% MACE over next 6 weeks - Admit for Clinical Observation Score 7 - 10: 72.7% MACE over next 6 weeks - Early Invasive Strategies Course & Med Decision Making: Course & Med Decision Making Pertinent Labs and Imaging studies reviewed. (See chart for details) [] Patient is a 35-year-old female being seen in the ER for dental pain and infection. Patient was treated with an antibiotic and pain medication in the ER and discharged home with a prescription. Patient's vital signs are stable. She is afebrile. Patient does have a dentist in which she can follow-up with. I discussed with patient all findings and diagnostic testing as well as the need to follow-up with PCP for further evaluation and treatment or return to the ER if any new or worsening symptoms. Strict return precautions were also discussed at length. Patient voiced understanding and agreement with the plan. Patient is hemodynamically stable at the time of disposition. Dragon Disclaimer: Dragon Disclaimer: This electronic medical record was generated, in whole or in part, using a voice recognition dictation system. Departure Departure: Impression: Primary Impression: Dental abscess Disposition: HOME / SELF CARE / HOMELESS Condition: GOOD Referrals: BARRIE SOSA MD (PCP) Patient Instructions: Dental Abscess Additional Instructions: You were seen for dental pain. There does appear to be an infection. You are given a first dose of an antibiotic in the ER and discharged home with a pr escription. Please start and finish this antibiotic completely. Take ibuprofen (600 to 800 mg) and Tylenol (500 to 650 mg) alternating and every 4-6 hours to help with inflammation and pain while you contact your dentist for further care. You should return to the ER. Developing worsening pain, fever greater than 101 degrees, swelling, redness, or any other new or worsening conditions. Unfortunately, your pain is not likely to improve without seeing a dentist for further evaluation and treatment of your poor dentition and dental caries. EMERGENCY DEPARTMENT GENERAL DISCHARGE INSTRUCTIONS Thank you for coming to [facility] (ED) today and trusting us with you care. We trust that you had a positivie experience in our Emergency Department. If you wish to speak to the department management, you may call the director at [phone]. YOUR FOLLOW UP INSTRUCTIONS ARE FOLLOWS: 1. Do you have a private Doctor? If you do not have a private doctor, please ask for a resource list of physicians or clinics that may be able to assist you with follow up care. 2. The Emergency Physician has interpreted your x-rays. The X-Ray specialist will also review them. If there is a change in the findings, you will be notified in 48 hours when at all possible. 3. A lab test or culture has been done, your results will be reviewed and you will be notified if you need a change in treatment. ADDITIONAL INSTRUCTIONS AND INFORMATION: 1. Your care today has been supervised by a physician who is specially trained in emergency care. Many problems require more than one evaluation for a complete diagnosis and treatment. We recommend that you schedule your follow up appointment as recommended to ensure complete treatment of you illness or injury. If you are unable to obtain follow up care and continue to have a problem, or if your condition worsens, we recommend that you return to the ED. 2. We are not able to safely determine your condition over the phone nor are we able to give sound medical advice over the phone. For these safety reasons, if you call for medical advice we will ask you to come to the ED for further evaluation. 3. If you have any questions regarding these discharge instructions please call the ED at [phone]. SAFETY INFORMATION: In the interest of safety, wellness, and injury prevention; we encourage you to wear your sealbelt, if you smoke; quite smoking, and we encourage family to use a protective helmet for bicycling and other sporting events that present an increased risk for head injury. IF YOUR SYMPTOMS WORSEN OR NEW SYMPTOMS DEVELOP, OR YOU HAVE CONCERNS ABOUT YOUR CONDITION; OR IF YOUR CONDITION WORSENS WHILE YOU ARE WAITING FOR YOUR FOLLOW UP APPOINTMENT; EITHER CONTACT YOUR PRIMARY CARE DOCTOR, THE PHYSICIAN WHOSE NAME AND NUMBER YOU WERE GIVEN, OR RETURN TO THE ED IMMEDIATELY. Scripts Hydrocodone/Acetaminophen (Hydrocodone-Acetamin 5-325 mg) 1 Each Tablet 1 EACH PO Q6HRS PRN for PAIN for 2 Days, #8 TAB 0 Refills Prov: ALDEN RAMSEY APRN 01/14/21 Clindamycin Hcl (CLINDAMYCIN HCL) 150 Mg Capsule 450 MG PO TID for dental infection for 10 Days, #90 CAP 0 Refills Prov: ALDEN RAMSEY APRN 01/14/21 ALDEN RAMSEY APRN Jan 14, 2021 11:27
[2021-01-14] MEDS ORDERED: HYDROcodone/APAP 5/325MG 1 TAB TABLET PO ONE (11:30)
[2021-01-14] MEDS ORDERED: CLINDAMYCIN HCL 150 MG CAPSULE PO ONE (11:30)
== END 2021-01-14 11:39 | disposition home or self-care (01) ==
LOC: ER 11:04
DX: K04.7 Periapical abscess without sinus (principal); Z88.0 Allergy status to penicillin; Z88.6 Allergy status to analgesic agent; Z91.040 Latex allergy status; Z98.51 Tubal ligation status; Z86.73 Personal history of transient ischemic attack (TIA), and cerebral infarction without residual deficits
CPT/HCPCS: 99283

== ENCOUNTER 2021-05-01 15:04 | Emergency (ER) | payer BC ==
[~2021-05-01] VITALS: Ht 167.6 cm; Wt 123.8 kg
[~2021-05-01 15:04] MED LIST changes: +CLIN-95 PO; +CLIN150C16 PO; -CLIN300C9 PO; +HYDR-2759 PO
[2021-05-01 15:15] VITALS: BP 122/72
--- NOTE | 2021-05-01 15:27 | PHYS DOC ---
Past History Past Medical History: Anxiety, Bipolar, DVT, TIA, Other Additional Past Medical Histor: BLOOD CLOTS, PTSD, FACTOR 5 AND 8 (SAWYER GALLARDO) Past Surgical History: Tubal ligation (SAWYER GALLARDO) Smoking: Non-smoker Alcohol Use: None Drug Use: None (SAWYER GALLARDO) General Adult EDM: Chief Complaint: SHOULDER INJURY HPI: HPI: Patient is a 36 year old female with history of factor V Leiden deficiency who presents with left shoulder pain. Patient reports she has had pain for 2 weeks, but yesterday she felt something "tear" and it got worse. She also reports intermittent paresthesias associated with her pain. She denies fever, chills, swelling, trauma, shortness of breath, cough, chest pain, palpitations. (SAWYER GALLARDO) Review of Systems: Review of Systems: ROS negative except as mentioned in HPI. (SAWYER GALLARDO) Allergies: Allergies: Allergies Coded Allergies Type Severity Reaction Last Updated Verified Penicillins Allergy Intermediate Anaphylaxis 08/06/17 Yes latex Allergy Intermediate rash 08/06/17 Yes tioconazole Allergy Intermediate 08/06/17 Yes (SAWYER GALLARDO) Physical Exam: PE: Constitutional: Well developed, well nourished, no acute distress, non-toxic appearance. Neck: Normal range of motion, no tenderness, supple, no stridor. Cardiovascular: Heart rate regular rhythm, no murmur. Lungs & Thorax: Bilateral breath sounds clear to auscultation. Skin: Warm, dry, no erythema, no rash. Extremities: No tenderness, no cyanosis, no clubbing, left shoulder active ROM intact with pain on abdction/adduction/flexion/extension (no pain with internal or external rotation), no edema, no erythema. Neurologic: Alert and oriented x4, normal motor function, normal sensory function, no focal deficits noted. (SAWYER GALLARDO) Radiology/Procedures: Radiology/Procedures: PROCEDURE: SHOULDER 2+V LEFT EXAMINATION: XR SHOULDER_LEFT 2+ VIEWS CLINICAL HISTORY: Pain, no known trauma TECHNIQUE: XR SHOULDER_LEFT 2+ VIEWS Number of Images/Views: 3 COMPARISON: None FINDINGS: Glenohumeral joint alignment maintained. Acromioclavicular joint maintained. No acute fracture. Acromiohumeral interval maintained. IMPRESSION: No acute osseous abnormality. Electronically signed by: Kevin Schumacher DO (05/01/2021 3:49 PM) [facility] (SAWYER GALLARDO) Heart Score: C/O Chest Pain: No (SAWYER GALLARDO) Course & Med Decision Making: Course & Med Decision Making Pertinent Labs and Imaging studies reviewed. (See chart for details) Patient presentation consistent with rotator cuff injury/strain. X-rays ordered to rule out fracture dislocation, though unlikely. Patient aware that x-ray imaging is limited to bony injury. Patient will be provided with orthopedic fol low-up for further evaluation should her pain persist. Patient understands and is agreeable to discharge plan. (SAWYER GALLARDO) Dragon Disclaimer: Dragon Disclaimer: This electronic medical record was generated, in whole or in part, using a voice recognition dictation system. (SAWYER GALLARDO) Attending Co-Sign The patient was seen and interviewed as well as examined at the bedside. The chart was reviewed. The case was discussed. Agree with the plan of care. (JOSEF TORREZ DO) Departure Departure: Impression: Primary Impression: Strain of rotator cuff Qualified Codes: S46.012A - Strain of muscle(s) and tendon(s) of the rotator cuff of left shoulder, initial encounter Disposition: HOME / SELF CARE / HOMELESS Condition: STABLE Referrals: BARRIE SOSA MD (PCP) BOBBY BASS Jr., DO Patient Instructions: Rotator Cuff Injury Additional Instructions: Follow with end user support specialist regarding further evaluation and management. Return to ER for new symptoms or worsening pain. SAWYER GALLARDO May 01, 2021 15:27 JOSEF TORREZ DO May 02, 2021 19:10
--- NOTE | 2021-05-01 15:51 | RAD ---
EXAMINATION: XR SHOULDER_LEFT 2+ VIEWS CLINICAL HISTORY: Pain, no known trauma TECHNIQUE: XR SHOULDER_LEFT 2+ VIEWS Number of Images/Views: 3 COMPARISON: None FINDINGS: Glenohumeral joint alignment maintained. Acromioclavicular joint maintained. No acute fracture. Acrom iohumeral interval maintained. IMPRESSION: No acute osseous abnormality. Electronically signed by: Kevin Schumacher DO (05/01/2021 3:49 PM) JOHANA
[2021-05-01] MEDS: KETOROLAC 60 MG/2 ML VIAL. IM ONE (16:21)
== END 2021-05-01 16:26 | disposition home or self-care (01) ==
LOC: ER 15:04
DX: S46.012A Strain of muscle(s) and tendon(s) of the rotator cuff of left shoulder, initial encounter (principal); F31.9 Bipolar disorder, unspecified; F41.9 Anxiety disorder, unspecified; Z86.718 Personal history of other venous thrombosis and embolism; Z86.73 Personal history of transient ischemic attack (TIA), and cerebral infarction without residual deficits; Z88.0 Allergy status to penicillin; Z91.040 Latex allergy status; Z88.8 Allergy status to other drugs, medicaments and biological substances; X58.XXXA Exposure to other specified factors, initial encounter; Y93.89 Activity, other specified; Y92.89 Other specified places as the place of occurrence of the external cause; Y99.8 Other external cause status
CPT/HCPCS: 73030; 96372; 99283; J1885

== ENCOUNTER 2021-06-22 11:22 | Emergency (ER) | payer BC ==
[~2021-06-22] VITALS: Ht 167.6 cm; Wt 123.8 kg
[2021-06-22 11:24] VITALS: BP 122/72
--- NOTE | 2021-06-22 11:43 | RAD ---
EXAM: Chest, single view. HISTORY: Covid 19. COMPARISON: 01/10/2020 FINDINGS: A frontal view of the chest is obtained. There is no infiltrate, pleural effusion or pneumo thorax. The heart is normal in size. IMPRESSION: No acute pulmonary finding. Electronically signed by: Shasta Lepe MD (06/22/2021 11:41 AM) [id number]
--- NOTE | 2021-06-22 11:48 | PHYS DOC ---
Past History Past Medical History: Anxiety, Bipolar, DVT, TIA, Other Additional Past Medical Histor: BLOOD CLOTS, PTSD, FACTOR 5 AND 8 Past Surgical History: Tubal ligation Smoking: Non-smoker Alcohol Use: None Drug Use: None General Adult EDM: Chief Complaint: COUGH HPI: HPI: 36-year-old female presents with 2-day history of cough, congestion, headache, body aches, fatigue. She is fully vaccinated against COVID-19. Several other people in her office are having similar symptoms and no one is been tested. She has not had a fever at home. Review of Systems: Review of Systems: Constitutional: Denies fever or chills. Body aches, fatigue. Eyes: Denies change in visual acuity HENT: Nasal congestion Respiratory: Cough without shortness of breath Cardiovascular: Denies chest pain or edema GI: Denies abdominal pain, nausea, vomiting, bloody stools or diarrhea : Denies dysuria Musculoskeletal: Denies back pain or joint pain Integument: Denies rash Neurologic: Headache. Denies focal weakness or sensory changes Endocrine: Denies polyuria or polydipsia Lymphatic: Denies swollen glands Psychiatric: Denies depression or anxiety Allergies: Allergies: Allergies Coded Allergies Type Severity Reaction Last Updated Verified Penicillins Allergy Intermediate Anaphylaxis 08/06/17 Yes latex Allergy Intermediate rash 08/06/17 Yes tioconazole Allergy Intermediate 08/06/17 Yes Physical Exam: PE: Constitutional: Well developed, well nourished, morbidly obese, no acute distress, non-toxic appearance. [] HENT: Normocephalic, atraumatic, bilateral external ears normal, oropharynx moist, no oral exudates, nose normal. [] Eyes: PERRLA, EOMI, conjunctiva normal, no discharge. [] Neck: Normal range of motion, no tenderness, supple, no stridor. [] Cardiovascular: Heart rate regular rhythm, no murmur [] Lungs & Thorax: Bilateral breath sounds clear to auscultation [] Abdomen: Bowel sounds normal, soft, no tenderness, no masses, no pulsatile masses. [] Skin: Warm, dry, no erythema, no rash. [] Back: No tenderness, no CVA tenderness. [] Extremities: No tenderness, no cyanosis, no clubbing, ROM intact, no edema. [] Neurologic: Alert and oriented X 3, normal motor function, normal sensory function, no focal deficits noted. [] Psychologic: Affect normal, judgement normal, mood normal. [] EKG: EKG: [] Radiology/Procedures: Radiology/Procedures: [] Impressions: EXAM: Chest, single view. HISTORY: Covid 19. COMPARISON: 01/10/2020 FINDINGS: A frontal view of the chest is obtained. There is no infiltrate, pleural effusion or pneumothorax. The heart is normal in size. IMPRESSION: No acute pulmonary finding. Electronically signed by: Shasta Lepe MD (06/22/2021 11:41 AM) [id number] DICTATED AND SIGNED BY: SHASTA LEPE MD DATE: 06/22/21 1140 CC: JOSEF TORREZ DO; BARRIE SOSA MD ~MTH0 0 Heart Score: C/O Chest Pain: N/A Risk Factors: Risk Factors: DM, Current or recent (<one month) smoker, HTN, HLP, family history of CAD, obesity. Risk Scores: Score 0 - 3: 2.5% MACE over next 6 weeks - Discharge Home Score 4 - 6: 20.3% MACE over next 6 weeks - Admit for Clinical Observation Score 7 - 10: 72.7% MACE over next 6 weeks - Early Invasive Strategies Course & Med Decision Making: Course & Med Decision Making Pertinent Labs and Imaging studies reviewed. (See chart for details) The patient's rapid COVID and influenza is negative. We cannot do a PCR COVID due to the shortage of materials. I am still suspicious for COVID-19. The p atient quarantine until she feels better for at least 24 hours and is fever free for that same amount of time. She is stable for discharge at this time. [] Dragon Disclaimer: Dragon Disclaimer: This electronic medical record was generated, in whole or in part, using a voice recognition dictation system. Departure Departure: Impression: Primary Impression: Viral syndrome Additional Impression: Suspected COVID-19 virus infection Disposition: HOME / SELF CARE / HOMELESS Condition: STABLE Referrals: BARRIE SOSA MD (PCP) Patient Instructions: Viral Syndrome Additional Instructions: You have been tested for or diagnosed with COVID-19. It is an infection caused by a new type of coronavirus. COVID-19 will cause cold-like or mild flu symptoms in most. It can cause more severe symptoms like problems breathing in some. There is no treatment for COVID-19. The body will clear the infection over time. Self-care will help to ease discomfort. Steps to Take: Self-Care Rest as needed. Healthy habits may help you feel better. Steps include: Choose healthy foods including fruits and vegetables. Drink water throughout the day. Get plenty of sleep each night. If you smoke, try to quit. It may ease breathing. Avoid alcohol. Keep Others Healthy The virus can spread to others. Droplets are released every time you sneeze or cough. The droplets can get into the mouth, nose, or eyes of people near you and lead to infection. To lower the chances of spreading COVID-19 to others: Stay at home until your doctor has said it is safe to leave. If you tested positive this will mean staying isolated until both of the following are true: At least 7 days have passed since the start of illness. You are free of fever for at least 72 hours without the use of medicine. During this time: - Avoid public areas, events, or transportation. Do not return to work or school until your doctor has said it is safe to do so. - Call ahead if you need to go to a medical center. Let them know you may have COVID-19. It will help them guide you where to go. They may also ask you to wear a facemask when you come to the office. - If you call for emergency medical services, let them know you may have COVID- 19. While at home: - Try to avoid close contact with others. Stay about 6 feet away. - If possible, spend most of your time in a separate room from others. - Use a face mask if you will be in close contact with others such as sharing a room or vehicle. - Have someone wipe down common surfaces in the home. Use household animal handler every day on areas like doorknobs, counters, or sinks. - Cough or sneeze into a tissue. Throw the tissue away right after use. If a tissue is not available, cough or sneeze into your elbow. - Wash your hands often. Wash them after sneezing or coughing. Use soap and water and wash for at least 20 seconds. Alcohol based hand drain cleaner plumber can be used if soap and water is not available. - Do not prepare food for others. Avoid sharing personal items like forks, spoons, or toothbrushes. - Avoid close contact with pets while you are sick. There is no evidence of the virus passing to pets. This is a safety step until more is known about this virus. Isolation can be frustrating. Social interaction can help. Keep in touch with friends and family through phone and tech options. You can still interact with others in your home, just keep a safe distance of about 6 feet. Follow-up: Your doctors office will check in with you to see if there are any changes in your health. You may be asked to keep track of symptoms to share with them. They will also let you know when you are clear to be in public again. Problems to Look Out For: Contact your doctor if your recovery is not going as you expect. Get emergency care if you have problems such as: - Trouble breathing - Nonstop chest pain or pressure - Changes in awareness, confusion, or problems waking - Lips or face have bluish color - Worsening of symptoms If you think you have an emergency, call for emergency medical services right away. As taken from Replaced by [facility] JOSEF TORREZ DO Jun 22, 2021 11:48
[2021-06-22 12:30] LABS: INFLUENZA A PATIENT NEGATIVE (NEGATIVE); INFLUENZA B PATIENT NEGATIVE (NEGATIVE)
== END 2021-06-22 12:57 | disposition home or self-care (01) ==
LOC: ER 11:22
DX: B34.9 Viral infection, unspecified (principal); F31.9 Bipolar disorder, unspecified; Z20.822 Contact with and (suspected) exposure to COVID-19; Z86.718 Personal history of other venous thrombosis and embolism; Z86.73 Personal history of transient ischemic attack (TIA), and cerebral infarction without residual deficits; Z88.0 Allergy status to penicillin; Z91.040 Latex allergy status; Z88.8 Allergy status to other drugs, medicaments and biological substances
CPT/HCPCS: 71045; 87428; 99284

== ENCOUNTER 2021-09-01 18:29 | Emergency (ER) | payer BC ==
[~2021-09-01] VITALS: Ht 167.6 cm; Wt 123.8 kg
[2021-09-01 19:33] VITALS: BP 126/73
--- NOTE | 2021-09-01 19:51 | PHYS DOC ---
Past History Past Medical History: Anxiety, Bipolar, DVT, TIA, Other Additional Past Medical Histor: BLOOD CLOTS, PTSD, FACTOR 5 AND 8 Past Surgical History: Tubal ligation Smoking: Non-smoker Alcohol Use: None Drug Use: None General Adult EDM: Chief Complaint: MULTIPLE COMPLAINTS HPI: HPI: 36-year-old female presents with right lower extremity swelling. The patient has had some bruising on her right thigh and around her right foot. She does not know what happened. She has also had swelling of the right ankle and right lower leg for the last few days. She has a headache today and feels like she might be a little bit short of breath. She is very concerned that she could have a DVT. 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 She is supposed to be on Xarelto or Eliquis but cannot afford them so she has not been taking them. She has been taking a baby aspirin. She denies fever or chills. Review of Systems: Review of Systems: Constitutional: Denies fever or chills Eyes: Denies change in visual acuity HENT: Denies nasal congestion or sore throat Respiratory: shortness of breath Cardiovascular: Denies chest pain or edema GI: Denies abdominal pain, nausea, vomiting, bloody stools or diarrhea : Denies dysuria Musculoskeletal: Right lower extremity swelling Integument: Denies rash Neurologic: Denies headache, focal weakness or sensory changes Endocrine: Denies polyuria or polydipsia Lymphatic: Denies swollen glands Psychiatric: Denies depression or anxiety Allergies: Allergies: Allergies Coded Allergies Type Severity Reaction Last Updated Verified Penicillins Allergy Intermediate Anaphylaxis 08/06/17 Yes latex Allergy Intermediate rash 08/06/17 Yes tioconazole Allergy Intermediate 08/06/17 Yes Physical Exam: PE: Constitutional: Well developed, well nourished, no acute distress, non-toxic appearance. [] HENT: Normocephalic, atraumatic, bilateral external ears normal, oropharynx moist, no oral exudates, nose normal. [] Eyes: PERRLA, EOMI, conjunctiva normal, no discharge. [] Neck: Normal range of motion, no tenderness, supple, no stridor. [] Cardiovascular: Heart rate regular rhythm, no murmur [] Lungs & Thorax: Bilateral breath sounds clear to auscultation [] Abdomen: Bowel sounds normal, soft, no tenderness, no masses, no pulsatile masses. [] Skin: Warm, dry, a couple areas of superficial ecchymosis right lower leg and right upper leg. [] Back: No tenderness, no CVA tenderness. [] Extremities: No tenderness, no cyanosis, no clubbing, ROM intact, right calf greater diameter than left. [] Neurologic: Alert and oriented X 3, normal motor function, normal sensory function, no focal deficits noted. [] Psychologic: Affect normal, judgement normal, mood anxious. [] Current Patient Data: Vital Signs: Vital Signs Date Time Temp Pulse Resp B/P (MAP) Pulse Ox O2 Delivery O2 Flow Rate FiO2 09/01/21 19:33 98.2 78 16 126/73 (90) 97 EKG: EKG: [] Radiology/Procedures: Radiology/Procedures: [] Impressions: Exam Date: 09/01/2021 9:09 PM US DPLX VENOUS EXTREMITY LOWER RT Indication: Reason: swelling, factor 5, Hx DVT / Spl. Instructions: / History: . INDICATION: Lower extremity pain/swelling TECHNIQUE: Grayscale sonogram, color Doppler, and spectral Doppler waveform analysis of the lower extremity venous system was performed on the right. FINDINGS: The right common femoral, superficial femoral, central greater saphenous, poplit eal, posterior tibial and peroneal veins are compressible and demonstrate normal color Doppler flow and normal spontaneous phasic waveforms or normal response to augmentation. IMPRESSION: No evidence of deep venous thrombosis in the right lower extremity. Electronically signed by: Ad Champion MD (09/01/2021 9:35 PM) [facility] DICTATED AND SIGNED BY: AD CHAMPION MD DATE: 09/01/212133 CC: JOSEF TORREZ DO; BARRIE SOSA MD ~ Heart Score: C/O Chest Pain: N/A Risk Factors: Risk Factors: DM, Current or recent (<one month) smoker, HTN, HLP, family history of CAD, obesity. Risk Scores: Score 0 - 3: 2.5% MACE over next 6 weeks - Discharge Home Score 4 - 6: 20.3% MACE over next 6 weeks - Admit for Clinical Observation Score 7 - 10: 72.7% MACE over next 6 weeks - Early Invasive Strategies Course & Med Decision Making: Course & Med Decision Making Pertinent Labs and Imaging studies reviewed. (See chart for details) The patient's labs are unremarkable. Her ultrasound of the right lower extremity is negative for DVT. I have given her Tylenol, Benadryl, and Toradol for her headache. Her symptoms have improved. She does not meet admission criteria. She is stable for discharge at this time. [] Dragon Disclaimer: Dragon Disclaimer: This electronic medical record was generated, in whole or in part, using a voice recognition dictation system. Departure Departure: Impression: Primary Impression: Swelling of right lower extremity Additional Impression: Headache Disposition: HOME / SELF CARE / HOMELESS Condition: STABLE Referrals: BARRIE SOSA MD (PCP) Patient Instructions: Edema, [id number], General Headache Without Cause, [id number] JOSEF TORREZ DO Sep 01, 2021 19:51
[2021-09-01] MEDS ORDERED: IV NORMAL SALINE 1,000ML 1,000 ML IV ONE (20:00)
[2021-09-01 20:22] LABS: BASO # 0.1 x10^3/uL (0.0-0.2); BASO % 1 % (0-3); EOS # 0.2 x10^3/uL (0.0-0.7); EOS % 3 % (0-3); HEMATOCRIT 40.9 % (36.0-47.0); HEMOGLOBIN 14.2 g/dL (12.0-15.5); LYMPH # 2.9 x10^3/uL (1.0-4.8); LYMPH % 39 % (24-48); MEAN CORPUSCULAR HEMOGLOBIN 30 pg (25-35); MEAN CORPUSCULAR HGB CONC 35 g/dL (31-37); MEAN CORPUSCULAR VOLUME 85 fL (79-100); MONO # 0.3 x10^3/uL (0.0-1.1); MONO % 5 % (0-9); NEUT # 3.9 x10^3uL (1.8-7.7); NEUT % 53 % (31-73); PLATELET COUNT 264 x10^3/uL (140-400); RED BLOOD COUNT 4.81 x10^6/uL (3.50-5.40); RED CELL DISTRIBUTION WIDTH 13.8 % (11.5-14.5); WHITE BLOOD COUNT 7.4 x10^3/uL (4.0-11.0)
[2021-09-01] MEDS ORDERED: ACETAMINOPHEN 500 MG TABLET PO ONE (20:30)
[2021-09-01] MEDS ORDERED: diphenhydrAMINE 50 MG/ML VIAL IVP ONE (20:30)
[2021-09-01 20:45] LABS: CALCIUM 8.8 mg/dL (8.5-10.1); CREATININE 0.8 mg/dL (0.6-1.0); GFR 80.7; POTASSIUM 3.4 mmol/L (3.5-5.1)
[2021-09-01 20:53] LABS: ALBUMIN 3.8 g/dL (3.4-5.0); ALBUMIN/GLOBULIN RATIO 1.2 (1.0-1.7); TOTAL BILIRUBIN 0.2 mg/dL (0.2-1.0); TOTAL PROTEIN 7.1 g/dL (6.4-8.2)
[2021-09-01] MEDS ORDERED: KETOROLAC 30 MG/ML VIAL. ONE (21:28)
--- NOTE | 2021-09-01 21:37 | RAD ---
Exam Date: 09/01/2021 9:09 PM US DPLX VENOUS EXTREMITY LOWER RT Indication: Reason: swelling, factor 5, Hx DVT / Spl. Instructions: / History: . INDICATION: Lower extremity pain/swelling TECHNIQUE: Grayscale sonogram, color Doppler, and spectral Doppler waveform analysis of the lower ex tremity venous system was performed on the right. FINDINGS: The right common femoral, superficial femoral, central greater saphenous, popliteal, posterior tibial and peroneal veins are compressible and demonstrate normal color Doppler flow and normal spontaneous phasic waveforms or normal response to augmentation. IMPRESSION: No evidence of deep venous thrombosis in the right lower extremity. Electronically signed by: Tushar Champion MD (09/01/2021 9:35 PM) [facility]
[2021-09-01] MEDS ORDERED: KETOROLAC 30 MG/ML VIAL. IVP ONE (22:00)
== END 2021-09-01 22:09 | disposition home or self-care (01) ==
LOC: ER 18:29
DX: S80.11XA Contusion of right lower leg, initial encounter (principal); R22.41 Localized swelling, mass and lump, right lower limb; R51.9 Headache, unspecified; F31.9 Bipolar disorder, unspecified; F41.9 Anxiety disorder, unspecified; Z86.718 Personal history of other venous thrombosis and embolism; Z86.73 Personal history of transient ischemic attack (TIA), and cerebral infarction without residual deficits; Z88.0 Allergy status to penicillin; Z91.040 Latex allergy status; Z88.8 Allergy status to other drugs, medicaments and biological substances; X58.XXXA Exposure to other specified factors, initial encounter; Y93.89 Activity, other specified; Y92.89 Other specified places as the place of occurrence of the external cause; Y99.8 Other external cause status
CPT/HCPCS: 36415; 80053; 85025; 93971; 96361; 96374; 96375; 99284; J1200; J1885; J7030

== ENCOUNTER 2021-10-21 09:28 | Emergency (ER) | payer BC ==
[~2021-10-21] VITALS: Ht 167.6 cm; Wt 106.7 kg
[~2021-10-21 09:28] MED LIST changes: -ACET1TAB33 PO; +ACET1TAB56 PO
--- NOTE | 2021-10-21 09:48 | PHYS DOC ---
Past History Past Medical History: Anxiety, Bipolar, DVT, TIA, Other Additional Past Medical Histor: BLOOD CLOTS, PTSD, FACTOR 5 AND 8 Past Surgical History: Tubal ligation Smoking: Non-smoker Alcohol Use: None Drug Use: None Adult General Chief Complaint Chief Complaint: LOWEREXTREMITY INJURY HPI HPI Patient is a 36 year old female who presents with complaint of left ankle and foot pain. The patient states that she rolled her ankle 4 days ago while walking up steps. She states that she fell over and bumped the left side of her leg. She noted no significant pain in her lower leg or thigh but started noticing immediate pain in the region of her left ankle. Patient states the pain is primarily along the lateral aspect of the ankle. States that she has been able to ambulate but notes worsening pain with ambulation. States over the past 1 to 2 days she started noticing pain radiating up the lateral aspect of the left leg up towards her left hip. Due to worsening pain symptoms she came to the emergency department to have her ankle looked at. States that she occasionally feels a popping sensation in her left ankle. She took ibuprofen for treatment of symptoms but notes no significant improvement. Review of Systems Review of Systems Constitutional: Denies fever or chills [] Musculoskeletal: Positive for left ankle pain, left ankle swelling [] Integument: Denies rash or skin lesions [] Neurologic: Denies headache, focal weakness or sensory changes [] All other systems were reviewed and found to be within normal limits, except as documented in this note. Allergies Allergies Allergies Coded Allergies Type Severity Reaction Last Updated Verified Penicillins Allergy Intermediate Anaphylaxis 10/21/21 Yes latex Allergy Intermediate rash 10/21/21 Yes tioconazole Allergy Intermediate 10/21/21 Yes Physical Exam Physical Exam Constitutional: Well developed, well nourished, no acute distress, non-toxic appearance. [] Skin: Warm, dry, no erythema, no rash. [] Extremities: Limited range of motion in left ankle secondary to pain, tenderness to palpation along lateral joint space of left ankle, left lateral malleolar tenderness, tenderness along lateral aspect of left foot, left knee and hip examination normal. [] Neurologic: Alert and oriented X 3, normal motor function, normal sensory function, no focal deficits noted. [] Current Patient Data Vital Signs Vital Signs Date Time Temp Pulse Resp B/P (MAP) Pulse Ox O2 Delivery O2 Flow Rate FiO2 10/21/21 09:30 97.7 91 18 131/68 (89) 96 Room Air Lab Results Not performed EKG EKG Not performed [] Radiology/Procedures Radiology/Procedures Not performed [] Heart Score C/O Chest Pain: No Risk Factors: Risk Factors: DM, Current or recent (<one month) smoker, HTN, HLP, family history of CAD, obesity. Risk Scores: Risk Factors: DM, Current or recent (<one month) smoker, HTN, HLP, family history of CAD, obesity. Course & Med Decision Making Course & Med Decision Making Pertinent Labs and Imaging studies reviewed. (See chart for details) X-rays negative for fracture or malalignment. Andrew wrap and Aircast applied to left ankle. Advise RICE therapy with primary care follow-up in 5 to 7 days for reevaluation if symptoms or not improving. Recommend return to the emergency department for any worsening symptoms. Patient voiced understanding and in agreement with treatment plan. [] Dragon Disclaimer Dragon Disclaimer This electronic medical record was generated, in whole or in part, using a voice recognition dictation system. Departure Departure: Impression: Primary Impression: Ankle sprain Disposition: HOME / SELF CARE / HOMELESS Condition: STABLE Referrals: BARRIE SOSA MD (PCP) Patient Instructions: Ankle Sprain Additional Instructions: Follow-up with Dr. Sosa in the next 5 to 7 days for reevaluation if symptoms or not improving. Return to the emergency department for any worsening symptoms. Scripts Methylprednisolone (MEDROL) 4 Mg Tab.ds.pk 1 PKG PO UD, #1 PKG Prov: LAMBERTO ARIAS MD 10/21/21 Problem Qualifiers Primary Impression: Ankle sprain Encounter type: initial encounter Involved ligament of ankle: anterior talofibular ligament Laterality: left Qualified Codes: S93.492A - Sprain of other ligament of left ankle, initial encounter LAMBERTO ARIAS MD October 21, 2021 09:48
--- NOTE | 2021-10-21 10:01 | RAD ---
EXAMINATION: XR EXAM OF ANKLE_LEFT 3V. HISTORY: 36 years Female Reason: left ankle pain, rolled ankle 4 days ago / COMPARISON: None. FINDINGS: No fracture, dislocation or radiopaque foreign body. The joint spaces and articular surfaces appea r unremarkable. IMPRESSION: Unremarkable exam. Electronically signed by: Pillo Mane MD (10/21/2021 9:59 AM) [id number]
--- NOTE | 2021-10-21 10:03 | RAD ---
EXAMINATION: XR FOOT_LEFT 3 VIEWS. HISTORY: 36 years Female Reason: left foot pain, rolled ankle 4 days ago COMPARISON: None. FINDINGS: No fracture, dislocation or radiopaque foreign body. The joint spaces and articular surfaces appea r unremarkable. There is a prominent plantar arch. IMPRESSION: No acute process. Electronically signed by: Pillo Mane MD (10/21/2021 10:00 AM) [id number]
[2021-10-21] MEDS ORDERED: METH4TAB2 PO (10:27)
[2021-10-21 10:35] VITALS: BP 152/62
== END 2021-10-21 10:37 | disposition home or self-care (01) ==
LOC: ER 09:33
DX: S93.492A Sprain of other ligament of left ankle, initial encounter (principal); Z86.718 Personal history of other venous thrombosis and embolism; Z86.73 Personal history of transient ischemic attack (TIA), and cerebral infarction without residual deficits; Z88.0 Allergy status to penicillin; Z91.040 Latex allergy status; Z88.8 Allergy status to other drugs, medicaments and biological substances; W10.8XXA Fall (on) (from) other stairs and steps, initial encounter; Y93.01 Activity, walking, marching and hiking; Y92.89 Other specified places as the place of occurrence of the external cause; Y99.8 Other external cause status
CPT/HCPCS: 73610; 73630; 99284; L4350